=== PATIENT | male | born 1940 | race Caucasian/White ===

== ENCOUNTER 2018-08-31 20:36 | Inpatient (IN) | payer OTHER ==
--- NOTE | 2018-08-31 20:53 | PDOC ---
History of Present Illness - General Chief Complaint: Chest Pain Stated Complaint: CHEST PAIN Time Seen by Provider: 08/31/18 20:52 History Source: Patient Exam Limitations: No Limitations - History of Present Illness Initial Comments: Pt is a 78 yo M, with PMH of glaucoma and cataracts, who is presenting with sharp L-sided chest pain, which he describes as "electric shocks". He says the pain started at 6 pm after he returned home from work, will come and go, and lasts a few seconds. He also states he has had numbness on his L lower face x2 days. Pain is not associated with n/v or extremity parasthesia. The pain came 5- 6 times before he presented to the ER. Pt states his PCP told him he needed a breast mammogram and possible R breast biopsy due to increased breast tissue and swelling. Pt denies any recent fevers/chills, headache, vision changes, SOB , nausea/vomiting, abdominal pain, diarrhea/constipation, or leg swelling. He denies any recent surgeries, travel, or extended bedrest. Pt denies alcohol, cigarette and other drug use. Pt denies recent travel and other sick contacts. 09/01/18 02:21 Past History - Travel Traveled outside of the country in the last 30 days: No Close contact w/someone who was outside of country & ill: No - Past Medical History Allergies/Adverse Reactions: Allergies Allergy/AdvReac Type Severity Reaction Status Date / Time diphenhydramine Allergy Verified 08/31/18 20:46 [From Benadryl] meperidine [From Demerol] Allergy Verified 08/31/18 20:47 Home Medications: Ambulatory Orders Brimonidine Tartrate [Alphagan 0.2% -] 1 drop TID 08/31/18 Brinzolamide [Azopt] 15 ml OP DAILY 08/31/18 Latanoprost 0.005% Eye Drops [Xalatan 0.005% Eye Drops -] 1 drop HS 08/31/18 Montelukast Sodium [Singulair] 4 mg PO DAILY 08/31/18 Netarsudil Mesylate [Rhopressa] 2.5 ml OP DAILY 08/31/18 Omeprazole 20 mg PO DAILY 08/31/18 Asthma: No Cardiac Disorders: No COPD: No DVT: No Hx Glaucoma: Yes Other medical history: GLAUCOMA - Surgical History Cardiac Surgery: No - Suicide/Smoking/Psychosocial Hx Smoking History: Never smoked Review of Systems - Review of Systems Able to Perform ROS?: Yes Is the patient limited Libyan proficient: No Constitutional: Yes: Weight Stable. No: Chills, Diaphoresis, Fever, Loss of Appetite, Night Sweats, Weakness HEENTM: No: Blurred Vision, Recent change in vision, Nose Congestion, Throat Pain, Difficulty Swallowing Respiratory: No: Cough, Orthopnea, Shortness of Breath, Wheezing, Productive cough, Hemoptysis Cardiac (ROS): Yes: Chest Pain. No: Edema, Irregular Heart Rate, Lightheadedness, Palpitations, Syncope, Chest Tightness ABD/GI: No: Abdominal Distended, Constipated, Diarrhea, Difficulty Swallowing, Nausea, Poor Appetite, Poor Fluid Intake, Vomiting, Abdominal cramping : No: Burning, Dysuria, Frequency, Hematuria, Pain, Urgency Musculoskeletal: No: Back Pain, Joint Pain, Muscle Weakness Integumentary: No: Bruising, Erythema, Rash Neurological: No: Headache, Numbness, Seizure, Tremors, Weakness, Unsteady Gait , Ataxia, Dizziness Psychiatric: No: Sleep Pattern Change, Change in Appetite Endocrine: No: Increased Urine, Change in Weight Hematologic/Lymphatic: No: Anemia, Blood Clots, Easy Bleeding, Easy Bruising All Other Systems: Reviewed and Negative *Physical Exam - Vital Signs Last Vital Signs Temp Pulse Resp BP Pulse Ox 97.7 F 72 18 164/93 99 08/31/18 20:43 08/31/18 20:43 08/31/18 20:43 08/31/18 20:43 08/31/18 20:43 - Physical Exam General Appearance: Yes: Nourished, Appropriately Dressed, Moderate Distress ( Pt vitals stable, pt has short bouts of pain (1-2 seconds and holds L chest wall )), Thin (pt face appears gaunt) HEENT: positive: EOMI, LUIS EDUARDO, Normal ENT Inspection, Normal Voice, Symmetrical, Pharynx Normal, Hearing Grossly Normal. negative: Scleral Icterus (R), Scleral Icterus (L), Pharyngeal Erythema, Tonsillar Exudate, Tonsillar Erythema, Rhinorrhea Neck: positive: Trachea midline, Normal Thyroid, Supple. negative: Tender, Rigid, Lymphadenopathy (R), Lymphadenopathy (L), Rigidity Respiratory/Chest: positive: Chest Tender (tenderness to palpation over lateral L chest wall, no obvious erythema or ecchymosis), Lungs Clear, Normal Breath Sounds, Other (increased breast tissue b/l). negative: Respiratory Distress, Accessory Muscle Use, Crackles, Wheezing Cardiovascular: positive: Regular Rhythm, Regular Rate, S1, S2, Other (RBBB). negative: Edema, JVD, Murmur Vascular Pulses: Carotid (R): 4+, Carotid (L): 4+ Gastrointestinal/Abdominal: positive: Normal Bowel Sounds, Flat, Soft. negative : Tender, Organomegaly, Pulsatile Mass, Distended, Guarding, Rebound Rectal Exam: positive: deferred Lymphatic: positive: Adenopathy (mild adenopathy in L axilla, LNs not firm or fixed. tenderness with palpation of L axilla.), Tenderness Musculoskeletal: positive: Normal Inspection. negative: CVA Tenderness Extremity: positive: Normal Capillary Refill, Normal Inspection, Normal Range of Motion, Pelvis Stable. negative: Tender, Pedal Edema Integumentary: positive: Normal Color, Dry, Warm. negative: Jaundice, Clammy, Diaphoresis, Rash Neurologic: positive: assistance representative II-XII NML intact, Fully Oriented, Alert, Normal Mood/ Affect, Normal Response, Motor Strength 5/5. negative: EOM Palsy, Facial Droop Heart Score/ECG Review - History History: Slightly suspicious - Electrocardiogram EKG: Non specific repolarization disturbance (RBBB) - Age Age: >/= 65 - Risk Factors Based on the list above the patient has:: No risk factors known - Troponin Troponin: </= normal limit - Score Heart Score - Total: 3 ED Treatment Course - LABORATORY CBC & Chemistry Diagram: 08/31/18 21:36 08/31/18 21:36 Medical Decision Making - Medical Decision Making Pt was seen at bedside, also will be seen by attending Dr. Morin. Pt presenting with sharp L-sided chest pain, which he describes as "electric shocks ". He says the pain started at 6 pm after he returned home from work, will come and go, and lasts a few seconds. He also states he has had numbness on his L lower face x2 days. Pain is not associated with n/v or extremity parasthesia. The pain came 5-6 times before he presented to the ER. Pt states his PCP told him he needed a breast mammogram and possible R breast biopsy due to increased breast tissue and swelling. Pt denies any recent fevers/chills, headache, vision changes, SOB, nausea/vomiting, abdominal pain, diarrhea/constipation, or leg swelling. Pt denies chickenpox history. PE showed focal chest wall tenderness over L chest and axilla region with palpation. No rash or lesions over chest wall. Pt vitals stable, saturating 99% , but appears gaunt. Considering ACS vs coronary vasospasm vs zoster vs PE. Ordered work-up including CBC, CMP, coags, cardiac profile, ECG, chest x-ray, UA , urine culture. Pt denying pain control at this time. Will continue to reassess pt and monitor for symptomatic improvement. ECG showed NSR, RBBB; HR 65, QRS 128, QTc 443 Spoke with pts son on the phone who is a physician, who is comfortable with the plan. He stated pt had not been diagnosed with RBBB in the past to his knowledge. 08/31/18 21:20 Pt was taken to chest x-ray. 08/31/18 22:18 CBC, CMP, and coags WNL. Trop <.02. Ordered chest CTA. Provided 650 mg PO Tylenol for pain and 1 L NS. Spoke with pts son who is agreeable with plan as well. 08/31/18 22:33 Pt taken for CTA. 08/31/18 23:06 [id number] CT/CHEST CTA Chest CT angiography Clinical information: chest pain; evaluate for pulmonary embolism, masses Multiplanar imaging was performed following the intravenous bolus administration of nonionic contrast. No prior CT studies are available at this facility for direct comparison. No discrete pulmonary embolus is identified. Patchy nodular infiltrates are identified within the right upper lobe, right middle lobe and lingula. Scattered subcentimeter pulmonary nodules are noted within the lower lobes bilaterally. Several nonspecific mildly prominent bilateral hilar lymph nodes are seen which may be on a reactive basis. No pneumothorax or pleural effusion is identified. There is no definite cardiac enlargement. No pericardial effusion is seen. There is no aortic aneurysm. The visualized osseous structures demonstrate no gross acute pathology. Impression: No CT evidence of pulmonary embolism. Patchy bilateral nodular infiltrates are noted as discussed above. There is also visualization of several scattered subcentimeter bilateral lower lobe pulmonary nodules. Correlate with follow-up CT to document resolution of these findings. Nonspecific mildly prominent bilateral hilar lymph nodes are seen which may be reactive in nature. Will page hospitalist team for admission to r/o ACS and further work-up of chest nodules. 09/01/18 00:08 Pt needed reassurance to stay in hospital. Spoke with son again about results, who encouraged pt to stay in the hospital. Paged hospitalist team for admission. 09/01/18 00:41 Pt accepted to hospitalist team, Dr. Garza. Pt lying comfortably, vitals are stable. Awaiting bed upstairs. Pt on telemetry box. 09/01/18 01:17 *DC/Admit/Observation/Transfer Diagnosis at time of Disposition: RBBB, Atypical chest pain, Pulmonary nodules - Discharge Dispostion Condition at time of disposition: Stable Decision to Admit order: Yes - Referrals - Patient Instructions - Post Discharge Activity
--- NOTE | 2018-08-31 21:11 | PDOC ---
Attending Attestation - HPI HPI: 08/31/18 21:44 The patient is a 78 year old male with a significant past medical history of acid reflux, asthma, cataract surgery (last year), glaucoma who presents to the ED with complaints of chest pain. Patient reports intermittent episodes of left sided chest pain that radiates to the mid chest since 6pm tonight. Patient states his pain is a stabbing like sensation. Patient states he lost 12 pounds over the past year. Denies nausea. Denies shortness of breath. Denies abdominal pain. Denies diaphoresis. Denies fever or chills. Denies any other symptoms. - Physicial Exam PE: 08/31/18 21:44 Constitutional: + thin appearing. Awake, alert, oriented. No acute distress. Head: Normocephalic. Atraumatic Eyes: + Droopy eyelid bilaterally, left more than right. PERRL. EOMI. Conjunctivae are not pale. ENT: Mucous membranes are moist and intact. Posterior pharynx without exudates or erythema. Uvula midline. Neck: Supple. Full ROM. No lymphadenopathy. Cardiovascular: Regular rate. Regular rhythm. S1, S2 regular. Distal pulses are 2+ and symmetric. Pulmonary/Chest: No evidence of respiratory distress. Clear to auscultation bilaterally No wheezing, rales or rhonchi. Abdominal: Soft and non-distended. There is no tenderness. No rebound, guarding or rigidity. No organomegaly. No palpable masses. Good bowel sounds. Back: No CVA tenderness. Musculoskeletal: No edema. No cyanosis. No clubbing. Full range of motion in all extremities. Nocalf tenderness. Radial/pedal pulses are intact and 2+ bilaterally Skin: Skin is warm and dry. No petechiae. No purpura. Neurological: Alert and oriented to person, place, and time. Cranial nerves II -XII are grossly intact. Normal speech. Strength is grossly symmetric. No sensory deficits. Psychiatric: Good eye contact. Normal interaction, affect and behavior. <Yusuf Arredondo - Last Filed: 08/31/18 21:44> - Resident Resident Name: Deonna Delatorre - ED Attending Attestation I have performed the following: I have examined & evaluated the patient, The case was reviewed & discussed with the resident, I agree w/resident's findings & plan, Exceptions are as noted - Medical Decision Making 11/01/18 21:11 I, Dr. Kelsey Morin DO, attest that this document has been prepared under my direction and personally reviewed by me in its entirety. I further attest, that it accurately reflects all work, treatment, procedures and medical decision -making performed by me. 08/31/18 22:34 a/p: 78yo male with intermittent episodes of L lateral cp that radiates to his mid sternal region -unable to reproduce with palpation -no prior episodes -feels different from his GERD -pt states wt loss about 15 lbs -no night sweats or cough -will send labs, ekg, cxr -will give tylenol for pain and asa -will monitor and reassess 08/31/18 22:38 cxr clear trop negative will obtain cta chest given pleuritic component of pain now and RBBB on ekg 09/01/18 00:37 no PE on cta pulmonary nodules on ct hilar adenopathy will place in obs for pulm eval and cards eval of cp 09/01/18 01:16 resident discussed the case with bandar who accepts pt to service <Kelsey Morin - Last Filed: 09/01/18 01:16> Heart Score/ECG Review - ECG Intrepretation Comment:: 08/31/18 21:12 sinus at 65, nl axis, rbbb, no acute st/t wave findings <Kelsey Morin - Last Filed: 09/01/18 01:16> Attestations - Attestations 08/31/18 21:44 Documentation prepared by Yusuf Arredondo, acting as medical records auditor for Kelsey Morin DO <Yusuf Arredondo - Last Filed: 08/31/18 21:44>
[2018-08-31] MEDS ORDERED: ASPIRIN 81 MG CHEWABLE TABLETS PO ONE (21:13)
[2018-08-31] MEDS ORDERED: ASPIRIN COATED 81 MG TABLET.EC ONE (21:50)
[2018-08-31 21:51] LABS: BASO % 0.4 % (0-2.0); EOS % 9.6 % (0-4.5); HEMATOCRIT 41.4 % (35.4-49); LYMPH % 19.6 % (8-40); MCHC 33.8 g/dl (32.0-35.9); MEAN PLT VOLUME 7.5 fl (7.5-11.1); MONO % 11.9 % (3.8-10.2); NEUT % 58.5 % (42.8-82.8); PLATELET COUNT 162 K/MM3 (134-434); RDW 12.9 % (11.9-15.9); WHITE BLOOD COUNT 4.2 K/mm3 (4.0-10.0)
[2018-08-31 22:04] LABS: INR 0.96 (0.83-1.09); PROTHROMBIN TIME (PATIENT) 11.3 SEC (9.7-13.0)
[2018-08-31 22:06] LABS: ACTIVATED PTT 27.5 SECONDS (25.2-36.5)
[2018-08-31 22:18] LABS: ALBUMIN 3.4 g/dl (3.4-5.0); ALK PHOS 76 U/L (45-117); ANION GAP 8 MMOL/L (8-16); BILIRUBIN,TOTAL 0.4 mg/dL (0.2-1); BLOOD UREA NITROGEN 16 mg/dL (7-18); CALCIUM 8.4 mg/dL (8.5-10.1); CHLORIDE 106 mmol/L (98-107); CO2 27 mmol/L (21-32); CREATININE 0.7 mg/dL (0.55-1.3); GLUCOSE,RANDOM 89 mg/dL (74-106); MAGNESIUM 1.9 mg/dL (1.8-2.4); POTASSIUM 3.7 mmol/L (3.5-5.1); SGOT/AST 17 U/L (15-37); SGPT/ALT 20 U/L (13-61); SODIUM 141 mmol/L (136-145); TOT PROT 7.3 g/dl (6.4-8.2)
[2018-08-31] MEDS ORDERED: ACETAMINOPHEN 325 MG TABLET (FP) PO ONE (22:33)
[2018-08-31] MEDS ORDERED: SODIUM CHLORIDE 1,000 ML IV STA (22:34)
[2018-08-31] MEDS ORDERED: ACETAMINOPHEN 325 MG TABLET (FP) ONE (22:46)
[2018-08-31 23:12] LABS: URINE APPEARANCE CLEAR; URINE BILIRUBIN NEGATIVE (<2.0 mg/dL); URINE COLOR YELLOW; URINE GLUCOSE (UA) NEGATIVE (NEGATIVE); URINE KETONE NEGATIVE (NEGATIVE); URINE LEUK ESTERASE NEGATIVE (NEGATIVE); URINE NITRITE NEGATIVE (NEGATIVE); URINE PROTEIN NEGATIVE (NEGATIVE); URINE UROBILINOGEN 4.0 E.U/dl mg/dL (0.2-1.0)
--- NOTE | 2018-09-01 03:09 | HP ---
CHIEF COMPLAINT: left sided chest pain PCP: Dr. Rome Beckford HISTORY OF PRESENT ILLNESS: Patient is a 78 year old male with history of of asthma, glaucoma, cataracts (s/ p recent surgery), GERD, presents with complaint of left- sided chest pain. States the pain began at approx. 6pm this evening as he was sitting down and watching TV. The pain is lovalized to lateral border of left chest, and non radiating. Described as sharp "electrical shock" with sudden onset, lasting 1-3 seconds, before immediately fading. Described as intermittent, with no clear inciting factor. Patient denies any prior occurrence of these symptoms. Denies palliative features of this pain. Patient denies history of WI or stroke. He does not recall if he had prior cardiac echo, and denies prior stress test of cardiac catheterization. Currently denies headache, dizziness, lightheadedness, fall, loss of consciousness, palpitations, abdominal pain, nausea, vomiting, diarrhea, constipation. However, he does admit recent unintentional weight loss of about 10-15 pounds. Denies night sweats, chills. 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 Lives: with his . Family History: Father: at 92 y/o. Required pacemaker Mother: at 84 y/o. WI at approx 80 y/o. Allergies: Shrimp, lobster. diphenhydramine [From Benadryl] Allergy (Verified 08/31/18 20:46) meperidine [From Demerol] Allergy (Verified 08/31/18 20:47) HOME MEDICATIONS: Home Medications Medication Instructions Recorded Brimonidine Tartrate [Alphagan 1 drop TID 08/31/18 0.2% -] Brinzolamide [Azopt] 15 ml OP DAILY 08/31/18 Latanoprost 0.005% Eye Drops 1 drop HS 08/31/18 [Xalatan 0.005% Eye Drops -] Montelukast Sodium [Singulair] 4 mg PO DAILY 08/31/18 Netarsudil Mesylate [Rhopressa] 2.5 ml OP DAILY 08/31/18 Omeprazole 20 mg PO DAILY 08/31/18 REVIEW OF SYSTEMS CONSTITUTIONAL: Admits: unintentional weight change. Absent: fever, chills, diaphoresis, generalized weakness, malaise, loss of appetite. HEENT: Absent: rhinorrhea, nasal congestion, throat pain, throat swelling, difficulty swallowing, mouth swelling, ear pain, eye pain, visual changes CARDIOVASCULAR: Admits: chest pain. Absent: syncope, palpitations, irregular heart rate, lightheadedness, peripheral edema RESPIRATORY: Absent: cough, shortness of breath, dyspnea with exertion, orthopnea, wheezing, stridor, hemoptysis GASTROINTESTINAL: Absent: abdominal pain, abdominal distension, nausea, vomiting, diarrhea, constipation, melena, hematochezia GENITOURINARY: Absent: dysuria, frequency, urgency, hesitancy, hematuria, flank pain, genital pain MUSCULOSKELETAL: Absent: myalgia, arthralgia, joint swelling, back pain, neck pain SKIN: Absent: rash, itching, pallor HEMATOLOGIC/IMMUNOLOGIC: Absent: easy bleeding, easy bruising, lymphadenopathy, frequent infections ENDOCRINE: Admits: unexplained weight loss. Absent: unexplained weight gain, heat intolerance, cold intolerance NEUROLOGIC: Absent: headache, focal weakness or paresthesias, dizziness, unsteady gait, seizure, mental status changes, bladder or bowel incontinence PSYCHIATRIC: Absent: anxiety, depression, suicidal or homicidal ideation, hallucinations. PHYSICAL EXAMINATION Vital Signs - 24 hr 08/31/18 20:43 Temperature 97.7 F Pulse Rate 72 Respiratory 18 Rate Blood Pressure 164/93 O2 Sat by Pulse 99 Oximetry (%) GENERAL: Awake, alert, and fully oriented, in no acute distress. HEAD: Normal with no signs of trauma. EYES: Pupils equal, round and reactive to light, extraocular movements intact b/ l without nystagmus. Sclera anicteric, conjunctiva clear without injection. Left eyelid droop noted greater than right (patient states this is not new finding). EARS, NOSE, THROAT: Ears normal, nares patent, oropharynx clear without exudates. Moist mucous membranes. NECK: Normal range of motion, supple without lymphadenopathy, JVD, or masses. LUNGS: Breath sounds equal, clear to auscultation bilaterally. No wheezes, and no crackles. No accessory muscle use. HEART: Regular rate and rhythm, normal S1 and S2 without murmur, rub or gallop. CHEST: Pain was reproducible once during my exam. B/L axillary lymphadenopathy noted greater on right than left. ABDOMEN: Soft, nontender, not distended, normoactive bowel sounds, no guarding, no rebound, no masses. No hepatomegaly or splenomegaly. MUSCULOSKELETAL: Normal range of motion at all joints. No bony deformities or tenderness. No CVA tenderness. UPPER EXTREMITIES: 2+ radial pulses b/l. Warm, well-perfused. LOWER EXTREMITIES: 2+ dorsalis pedis pulses b/l. Warm, well-perfused. No calf tenderness. No peripheral edema b/l. NEUROLOGICAL: Cranial nerves II-XII intact. Normal speech. Strength 5/5 b/l upper and lower extremities. PSYCHIATRIC: Cooperative. Good eye contact. Appropriate mood and affect upon my encounter. SKIN: Warm, dry. Laboratory Results - last 24 hr 08/31/18 08/31/18 08/31/18 21:36 21:36 21:36 WBC 4.2 RBC 4.50 Hgb 14.0 Hct 41.4 MCV 92.0 MCH 31.0 MCHC 33.8 RDW 12.9 Plt Count 162 MPV 7.5 Absolute Neuts (auto) 2.4 Neutrophils % 58.5 Lymphocytes % 19.6 Monocytes % 11.9 H Eosinophils % 9.6 H Basophils % 0.4 Nucleated RBC % 0 PT with INR 11.30 INR 0.96 PTT (Actin FS) 27.5 Sodium 141 Potassium 3.7 Chloride 106 Carbon Dioxide 27 Anion Gap 8 BUN 16 Creatinine 0.7 Creat Clearance w eGFR > 60 Random Glucose 89 Calcium 8.4 L Magnesium 1.9 Total Bilirubin 0.4 AST 17 ALT 20 Alkaline Phosphatase 76 Creatine Kinase 73 Troponin I < 0.02 Total Protein 7.3 Albumin 3.4 Urine Color Urine Appearance Urine pH Ur Specific Crosby Urine Protein Urine Glucose (UA) Urine Ketones Urine Blood Urine Nitrite Urine Bilirubin Urine Urobilinogen Ur Leukocyte Esterase 08/31/18 22:45 WBC RBC Hgb Hct MCV MCH MCHC RDW Plt Count MPV Absolute Neuts (auto) Neutrophils % Lymphocytes % Monocytes % Eosinophils % Basophils % Nucleated RBC % PT with INR INR PTT (Actin FS) Sodium Potassium Chloride Carbon Dioxide Anion Gap BUN Creatinine Creat Clearance w eGFR Random Glucose Calcium Magnesium Total Bilirubin AST ALT Alkaline Phosphatase Creatine Kinase Troponin I Total Protein Albumin Urine Color Yellow Urine Appearance Clear Urine pH 5.0 Ur Specific Crosby 1.021 Urine Protein Negative Urine Glucose (UA) Negative Urine Ketones Negative Urine Blood Negative Urine Nitrite Negative Urine Bilirubin Negative Urine Urobilinogen 4.0 e.u/dl Ur Leukocyte Esterase Negative ASSESSMENT/PLAN: Patient is a 78 year old male with history of of asthma, glaucoma, cataracts (s/ p recent surgery), GERD, presents with complaint of left- sided chest pain. Atypical chest pain -Concern for unstable angina vs. musculoskeletal etiology as pain is partially reproducible -Troponins negative X2 -EKG shows sinus rhythm 65bpm with RBBB -F/U cardiology consult (Dr. Valero) -F/U cardiac echo -Cardiac monitoring -NPO in anticipation for stress test -Typenol 650mg PO Q6H for pain PRN Pulmonary infiltrates -Patient endorses recent unintentional weight loss, and palpable 1cm lymphadenopathy noted at right axilla upon exam. Concern for malignancy. -CT chest shows patchy nodular infiltrates in RUL, and RML, scattered subcentimeter pulmonary nodules b/l lower lobes, with hilar adenopathy b/l. -F/U pulmonology consult (Dr. Monterroso) -Levaquin 750mg daily -Sputum culture -F/U ESR, CRP Glaucoma -Continue home medications GERD -Continue omeprazole 20mg PO daily FEN -IV normal saline at 75mL/ hour -Follow CMP -NPO in anticipation for possible stress test Prophylaxis -Lovenox 40mg subq TID Disposition -Admit to telemetry floor for care Visit type - Emergency Visit Emergency Visit: Yes ED Registration Date: 09/01/18 Care time: The patient presented to the Emergency Department on the above date and was hospitalized for further evaluation of their emergent condition. - New Patient This patient is new to me today: Yes Date on this admission: 09/01/18 - Critical Care Critical Care patient: No
[2018-09-01] MEDS ORDERED: ACETAMINOPHEN 325 MG TABLET (FP) PO PRN (05:09)
--- NOTE | 2018-09-01 06:55 | PN ---
Teaching Attending Note Name of Resident: Kiah Zayas ATTENDING PHYSICIAN STATEMENT I saw and evaluated the patient. I reviewed the resident's note and discussed the case with the resident. I agree with the resident's findings and plan as documented. SUBJECTIVE: Seen and examined with resident; please refer to their note for further information on the history. He is a 78 y/o HM with a PMH significant for glaucoma s/p procedure who does not take any chronic medications; he denies HTN but he is 160 upon presentation but postulates it was because he just got to the hospital. He presents with intermittent chest pain. During the evening on the day of presentation he experienced sharp, shooting, 'electric' chest pain to the L-lateral chest that was intense for seconds then resolved. Occured several times since then. Is self limiting and it resolves on its own. Happened once for <3 seconds in the ER. No other sx. No SOB, etc. EKG negative for STEMI, troponin negative. CTA negative for PE but incidentally scattred pulm nodules and patchy nodular infiltrate. Has never seen a pulmonary MD. Sometimes will cough but no recent illness. Admit to the medicine service to R/O ACS. Questionable L-sided axilary LN palpated. Of note is that he doesn't see a Slackline Operator or had any significant cardiac workup before. 10 sys ROS done and negative aside from HPI PMH and PSH per chart FH asked and noncontributory Denies tobacco or alcohol abuse currently OBJECTIVE: VSS; labs and imaging reviewed NAD, resting in bed Potential LN vs. anatomical difference palpated in L-axilla Lungs CTAB with sym expansion RRR with s1/2 no mgr NT ND +BS No edema, normal muscle tone CTA discussed in HPI Troponin (-) x2 EKG reviewed ASSESSMENT AND PLAN: Mr. Grijalva is a 78 y/o HM with a PMH significant for glaucoma presenting with somewhat atypical chest pain. He is at least moderate risk and would benefit from stress test. He was found to have patchy nodular infiltrates and nodules on CT, as well. 1) Chest pain in adult, r/o ACS -Moderate risk; checking troponin and monitoring telemetry -Check stress test; if positive consult cardiology and switch to inpatient -Start ASA 81mg PO QD for primary prevention -Check lipids, A1c, TSH -If negative stress consider noncardiac causes of chest pain in adult. 2) Patchy nodular infiltrates, pulm nodules -New finding, no sx. No fevers or white count -Checking sputum culture, starting PO levaquin for empiric CAP coverage, consulting pulmonary for further assessment -?L-axillary LN? May have been normal tissue. 3) Glaucoma -Continue home meds Full Code
[2018-09-01] MEDS ORDERED: ACETAMINOPHEN 325 MG TABLET (FP) ONE (08:56)
[2018-09-01] MEDS ORDERED: PANTOPRAZOLE 20 MG TABLET (FP) PO SCH (10:00)
[2018-09-01] MEDS ORDERED: PATIENT'S OWN MEDICATION (NON-FORMULARY) (Netarsudil Mesylate [Rhopressa] 2.5 ML) OU SCH (10:00)
[2018-09-01] MEDS ORDERED: PATIENT'S OWN MEDICATION (NON-FORMULARY) (Montelukast Sodium [Singulair] 4 MG) PO SCH (10:00)
[2018-09-01] MEDS ORDERED: levoFLOXacin 750 MG TABLET PO SCH (10:00)
--- NOTE | 2018-09-01 10:44 | EKG ---
Test Reason : Blood Pressure : / mmHG Vent. Rate : 051 BPM Atrial Rate : 051 BPM P-R Int : 134 ms QRS Dur : 134 ms QT Int : 452 ms P-R-T Axes : 085 001 056 degrees QTc Int : 416 ms SINUS BRADYCARDIA RIGHT BUNDLE BRANCH BLOCK ABNORMAL ECG NO PREVIOUS ECGS AVAILABLE Confirmed by LUCA SADLER MD ([id number]) on 09/01/2018 10:44:09 AM Referred By: Confirmed By:LUCA SADLER MD
--- NOTE | 2018-09-01 11:08 | ECHO ---
Name: TRUONG JONES Exam:Adult Echocardiogram Study Date: 09/01/2018 09:56 AM Age: 78 yrs Reason For Study: Chest pain Height: 66 in Weight: 118 lb BSA: 1.6 m2 MMode/2D Measurements & Calculations IVSd: 0.61 cm LA dimension: 3.0 cm LVIDd: 4.8 cm LVIDs: 3.0 cm LVPWd: 0.79 cm LVPWs: 0.99 cm EDV(Teich): 105.1 ml ESV(Teich): 33.6 ml Doppler Measurements & Calculations MV E max cici: 63.9 cm/sec Ao V2 max: 102.3 cm/sec MV A max cici: 55.3 cm/sec Ao max P.2 mmHg MV E/A: 1.2 AI P1/2t: 686.3 msec MV dec time: 0.14 sec AI max cici: 244.3 cm/sec LV V1 max P.0 mmHg AI max P.9 mmHg LV V1 max: 85.9 cm/sec AI dec slope: 104.3 cm/sec2 PA V2 max: 88.2 cm/sec PA max P.1 mmHg Procedure The study was technically difficult with many images being suboptimal in quality. Left Ventricle Left ventricular systolic function is grossly normal. Regional wall motion abnormalities cannot be ex cluded due to limited visualization. Right Ventricle The right ventricle is borderline dilated. The right ventricular systolic function is grossly normal. Atria Normal left and right atrial size and function. Mitral Valve The mitral valve is grossly normal. There is no mitral valve stenosis. There is trace mitral regurgit ation. Tricuspid Valve The tricuspid valve is not well visualized, but is grossly normal. There is trace tricuspid regurgita tion. Aortic Valve The aortic valve is not well visualized. No hemodynamically significant valvular aortic stenosis. Mil d aortic regurgitation. Pulmonic Valve The pulmonic valve is not well seen, but is grossly normal. There is no pulmonic valvular stenosis. T here is no pulmonic valvular regurgitation. Great Vessels The aortic root is normal size. Pericardium/Pleura There is no pericardial effusion. Interpretation Summary The study was technically difficult with many images being suboptimal in quality. Regional wall motion abnormalities cannot be excluded due to limited visualization. Left ventricular systolic function is grossly normal. The right ventricle is borderline dilated. Mild aortic regurgitation. There is no pericardial effusion. MD Crowder *Berta 09/01/2018 11:08 AM
[2018-09-01] MEDS: ASPIRIN 81 MG CHEWABLE TABLETS PO SCH (11:09)
[2018-09-01] MEDS: ENOXAPARIN NA (PORCINE) 40 MG/0.4 ML DISP.SYRIN SQ SCH (11:10)
--- NOTE | 2018-09-01 11:51 | CON.CARD ---
Cardiology Consult (text) - Consultation Consultation Note: cc: cp hpi: 78 m no sig pmhx here with cp. Yesterday was sitting at work and noticed sharp electrical type pain in left axilla/chest area. Only last a brief moment. Had a few more episodes since then. Pt admits he has had this cp intermittently for several mos. No anginal sxs. No sob palps dizzy loc pnd orthopnea le edema. No hx hrt dz. pmh: per hpi psh: nc social: no tob fam: no premature cad, scd ros: per hpi; no nvd fever cough resendez vision changes, gib hematuria dysuria meds: Ambulatory Orders Brimonidine Tartrate [Alphagan 0.2% -] 1 drop TID 08/31/18 Brinzolamide [Azopt] 15 ml OP DAILY 08/31/18 Latanoprost 0.005% Eye Drops [Xalatan 0.005% Eye Drops -] 1 drop HS 08/31/18 Montelukast Sodium [Singulair] 4 mg PO DAILY 08/31/18 Netarsudil Mesylate [Rhopressa] 2.5 ml OP DAILY 08/31/18 Omeprazole 20 mg PO DAILY 08/31/18 pe: Vital Signs Period Temp Pulse Resp BP Sys/Nguyen Pulse Ox Last 24 Hr 97.4 F-98.0 F 54-72 16-20 96-164/50-93 97-99 nad no jvd rrr s1 s2 no mrg cta bl nl eff aaox3 no le e/c/c abd nt nd pos bs no jaundice diaphoresis pos dp pt no carotid bruits Laboratory Last Values WBC 4.2 K/mm3 (4.0-10.0) 08/31/18 21:36 RBC 4.50 M/mm3 (4.00-5.60) 08/31/18 21:36 Hgb 14.0 GM/dL (11.7-16.9) 08/31/18 21:36 Hct 41.4 % (35.4-49) 08/31/18 21:36 MCV 92.0 fl (80-96) 08/31/18 21:36 MCH 31.0 pg (25.7-33.7) 08/31/18 21:36 MCHC 33.8 g/dl (32.0-35.9) 08/31/18 21:36 RDW 12.9 % (11.9-15.9) 08/31/18 21:36 Plt Count 162 K/MM3 (134-434) 08/31/18 21:36 MPV 7.5 fl (7.5-11.1) 08/31/18 21:36 Absolute Neuts (auto) 2.4 K/mm3 (1.5-8.0) 08/31/18 21:36 Neutrophils % 58.5 % (42.8-82.8) 08/31/18 21:36 Lymphocytes % 19.6 % (8-40) 08/31/18 21:36 Monocytes % 11.9 % (3.8-10.2) H 08/31/18 21:36 Eosinophils % 9.6 % (0-4.5) H 08/31/18 21:36 Basophils % 0.4 % (0-2.0) 08/31/18 21:36 Nucleated RBC % 0 % (0-0) 08/31/18 21:36 PT with INR 11.30 SEC (9.7-13.0) 08/31/18 21:36 INR 0.96 (0.83-1.09) 08/31/18 21:36 PTT (Actin FS) 27.5 SECONDS (25.2-36.5) 08/31/18 21:36 Sodium 141 mmol/L (136-145) 08/31/18 21:36 Potassium 3.7 mmol/L (3.5-5.1) 08/31/18 21:36 Chloride 106 mmol/L (98-107) 08/31/18 21:36 Carbon Dioxide 27 mmol/L (21-32) 08/31/18 21:36 Anion Gap 8 MMOL/L (8-16) 08/31/18 21:36 BUN 16 mg/dL (7-18) 08/31/18 21:36 Creatinine 0.7 mg/dL (0.55-1.3) 08/31/18 21:36 Creat Clearance w eGFR > 60 (>60) 08/31/18 21:36 Random Glucose 89 mg/dL (74-106) 08/31/18 21:36 Hemoglobin A1c % 5.0 % (4.2-6.3) 09/01/18 09:30 Calcium 8.4 mg/dL (8.5-10.1) L 08/31/18 21:36 Magnesium 1.9 mg/dL (1.8-2.4) 08/31/18 21:36 Total Bilirubin 0.4 mg/dL (0.2-1) 08/31/18 21:36 AST 17 U/L (15-37) 08/31/18 21:36 ALT 20 U/L (13-61) 08/31/18 21:36 Alkaline Phosphatase 76 U/L (45-117) 08/31/18 21:36 Creatine Kinase 73 IU/L (26-308) 08/31/18 21:36 Troponin I < 0.02 ng/ml (0.00-0.05) 09/01/18 02:08 C-Reactive Protein < 0.3 MG/DL (0.00-0.3) 09/01/18 09:30 Total Protein 7.3 g/dl (6.4-8.2) 08/31/18 21:36 Albumin 3.4 g/dl (3.4-5.0) 08/31/18 21:36 Triglycerides 37 mg/dL (0-150) 09/01/18 09:30 Cholesterol 156 mg/dL (50-200) 09/01/18 09:30 Total LDL Cholesterol 79 mg/dL (5-100) 09/01/18 09:30 HDL Cholesterol 75 mg/dL (40-60) H 09/01/18 09:30 TSH 1.70 uIU/ml (0.358-3.74) 09/01/18 09:30 Urine Color Yellow 08/31/18 22:45 Urine Appearance Clear 08/31/18 22:45 Urine pH 5.0 (5.0-8.0) 08/31/18 22:45 Ur Specific [place] 1.021 (1.010-1.035) 08/31/18 22:45 Urine Protein Negative (NEGATIVE) 08/31/18 22:45 Urine Glucose (UA) Negative (NEGATIVE) 08/31/18 22:45 Urine Ketones Negative (NEGATIVE) 08/31/18 22:45 Urine Blood Negative (NEGATIVE) 08/31/18 22:45 Urine Nitrite Negative (NEGATIVE) 08/31/18 22:45 Urine Bilirubin Negative (<2.0 mg/dL) 08/31/18 22:45 Urine Urobilinogen 4.0 e.u/dl mg/dL (0.2-1.0) 08/31/18 22:45 Ur Leukocyte Esterase Negative (NEGATIVE) 08/31/18 22:45 ecg: sr 54, nl pr, rbbb cta chest: no pe, no chf, b/l nodular infiltrates, and hilar LN echo 08/2018: nl lv/rv, mild ar a/p: 78 m no sig pmhx here with cp. cp: -trops neg, cp atypical, echo unremarkable, no signs acs -during exam pt had episode of this cp and he twitched when he felt it shooting in his left axilla/chest, this is not typical for cardiac pain, seems more MSK/ nerve related. Pt has multiple pulmonary findings on ct, rec pulm eval. abnl ecg: -ecg with rbbb, no olds to compare -no signs acs -echo unremarkable -outpt f/u ar: -mild ar on echo here, outpt f/u
--- NOTE | 2018-09-01 16:01 | PN ---
Teaching Attending Note Name of Resident: Nestor Nix ATTENDING PHYSICIAN STATEMENT I saw and evaluated the patient. I reviewed the resident's note and discussed the case with the resident. I agree with the resident's findings and plan as documented. SUBJECTIVE: No fever or chills. No abd pain. L chest intermittent sharp pain at L anterior axillary line x 2 days . happened 1 week ago and few months back . denies smoking. no weight loss . no fever. no cough or sputum production. was treated for PNA 6 weeks ago as out pt OBJECTIVE: NAD. awake , alert. twisted with pain during the exam x 2 seconds. CV: RRR. no MRG Lungs: CTAB Ext: no edema or erythema. Breasts: no masses or discharge in both breasts. no LAP in axilla, soft tissue thickness in L axilla, mobile under skin and on deep tissue Abd: soft, NT, Nd , NL BS MS; TTP over L sided rib ( approximately 8 or 9 ) , at anterior axillary line ASSESSMENT AND PLAN: 78 y/o man with h/o asthma who presented with L sided CP, and was found to have b/l lung nodules and infiltrates . 1- CP: atypical for cardiac origin. EKG with RBBB with no ST or TW changes. Echo reviewed. case d/w Dr. Leal, no indication for stress test. rib xray due to focal tenderness over rib 8 or 9 2- Pulmonary changes and nodules. was diagnosed and treated for PNA 6 weeks ago. - No clinical evidence of PNA now. dc Abx . - changes might be due to previous pNA , or has chronic undiagnosed process. - pulmnary c/s pending - Quantiferon gold ordered last night - might need further testing and f/u as out pt , but I don't think it is responsible for sx - No Lymphadenopathy in L axilla, but thickened soft tissue structure , need t be followed as out pt . family and patient were instructed. PCP to be called by resident 3- dispo : pending Pulm roderick
--- NOTE | 2018-09-01 17:26 | CON.PULM ---
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 Denies fever,chills,sob at rest does have some garza one -two flights.. He says the pain started at 6 pm after he returned home from work, will come and go, and lasts a few seconds. He also states he has had numbness on his L lower face x2 days. Pain is not associated with n/v or extremity parasthesia. The pain came 5-6 times before he presented to the ER. Pt states his PCP told him he needed a breast mammogram and possible R breast biopsy due to increased breast tissue and swelling. Pt denies any recent fevers/chills, headache, vision changes, SOB, nausea/vomiting, abdominal pain, diarrhea/ constipation, or leg swelling. He denies any recent surgeries, travel, or extended bedrest. 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 No: COPD, O2 Dependent Gastrointestinal: No: Ascites Hepatobiliary: No: Cirrhosis Renal/: No: Renal Failure Heme/Onc: No: Anemia Psych: No: Addictions Musculoskeletal: No: Bursitis Rheumatology: No: Lupus ENT: No: Allergic Rhinitis Endocrine: No: Diabetes Mellitus - Past Surgical History Past Surgical History: Yes: Cataract Removal - Alcohol/Substance Use Hx Alcohol Use: Yes (one glass wine) History of Substance Use: reports: None - Smoking History Smoking history: Never smoked Have you smoked in the past 12 months: No - Social History Usual Living Arrangement: With Spouse ADL: Independent Place of : Other History of Recent Travel: No Home Medications - Allergies Allergies/Adverse Reactions: Allergies Allergy/AdvReac Type Severity Reaction Status Date / Time diphenhydramine Allergy Verified 08/31/18 20:46 [From Benadryl] meperidine [From Demerol] Allergy Verified 08/31/18 20:47 - Home Medications Home Medications: Ambulatory Orders Brimonidine Tartrate [Alphagan 0.2% -] 1 drop TID 08/31/18 Brinzolamide [Azopt] 15 ml OU DAILY 08/31/18 Latanoprost 0.005% Eye Drops [Xalatan 0.005% Eye Drops -] 1 drop OU HS 08/31/18 Montelukast Sodium [Singulair] 4 mg PO DAILY 08/31/18 Netarsudil Mesylate [Rhopressa] 2.5 ml OU DAILY 08/31/18 Omeprazole 20 mg PO DAILY 08/31/18 Montelukast Na [Singulair -] 10 mg PO DAILY 09/01/18 Omeprazole 40 mg PO DAILY 09/01/18 Family Disease History - Family Disease History Family History: Unremarkable Review of Systems - Review of Systems Constitutional: denies: Fever Eyes: reports: Other (glaucoma) HENT: reports: No Symptoms Neck: reports: No Symptoms Cardiovascular: reports: Chest Pain Respiratory: reports: Exercise Intolerance, SOB on Exertion. denies: Cough, Hemoptysis, Orthopnea, SOB, Wheezing Gastrointestinal: reports: Abdominal Pain (mid epigastric) Genitourinary: reports: No Symptoms Breasts: reports: Other (enlarging right aereola) Musculoskeletal: reports: No Symptoms Integumentary: reports: No Symptoms Neurological: reports: No Symptoms Physical Exam Vital Sings: Vital Signs Temperature 97.7 F 09/01/18 10:00 Pulse Rate 54 L 09/01/18 10:00 Respiratory Rate 18 09/01/18 10:00 Blood Pressure 127/66 09/01/18 10:00 O2 Sat by Pulse Oximetry (%) 97 09/01/18 06:39 Constitutional: Yes: Calm Eyes: Yes: EOM Intact HENT: Yes: Normocephalic Neck: Yes: Trachea Midline Cardiovascular: Yes: Regular Rate and Rhythm Respiratory: Yes: CTA Bilaterally Gastrointestinal: Yes: Soft Renal/: Yes: WNL Breast(s): Yes: Right (breast larger than left/no mass palpated) Musculoskeletal: Yes: WNL Extremities: Yes: WNL Edema: No Integumentary: Yes: WNL Neurological: Yes: WNL ...Motor Strength: WNL Psychiatric: Yes: WNL Labs: CBC, BMP 08/31/18 21:36 08/31/18 21:36 Imaging - Results Chest X-ray: Report Reviewed, Image Reviewed Cat Scan: Report Reviewed, Image Reviewed Problem List - Problems (1) Atypical chest pain Code(s): R07.89 - OTHER CHEST PAIN (2) Pulmonary nodules Code(s): R91.8 - OTHER NONSPECIFIC ABNORMAL FINDING OF LUNG FIELD (3) RBBB Code(s): I45.10 - UNSPECIFIED RIGHT BUNDLE-BRANCH BLOCK Assessment/Plan infectious vs inflammatory bilateral nodular infiltrates h/o bronchial asthma low index of suspicion for ABPA/?RADHA sharp atypical left axillary pain etiology? 15 lbs weight loss over 6 months would order ESR/CRP sputum for culture/gram stain/fungal culture quant gold/ppd obtain ct abd/pelvis consider ID eval may ultimately need outpatient bronchoscopy will follow Tammy HENDRICKS MD
--- NOTE | 2018-09-01 19:07 | PN ---
Physical Exam: SUBJECTIVE: Patient seen and examined. Pt. endorses electrical jolts every 2-3 minutes from anterior left axilla to mid-sternum. Pt. denies ever having colonoscopy. Pt. endorses decrease in appetite, and unintentional weight-loss over the past few months, endorses 6 pounds loss over the last month. Pt. 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 He endorses post-nasal drip and that causes him to spit frequently. He states he has allergies to shellfish, lobster and shrimp with a questionable allergy to iodine. OBJECTIVE: Vital Signs Period Temp Pulse Resp BP Sys/Nguyen Pulse Ox Last 24 Hr 97.4 F-98.0 F 54-72 16-20 96-164/50-93 97-99 GENERAL: The patient is awake, alert, and fully oriented, in no acute distress except for intermittent jolts as mentioned above. HEAD: Normal with no signs of trauma. EYES: PERRL, extraocular movements intact, sclera anicteric, conjunctiva clear. No ptosis. Pt. endorses narrowed visual [place] and inferior half of visual field. ENT: Ears normal, nares patent, oropharynx clear without exudates, moist mucous membranes. Pt endorses left jaw tenderness/numbness when turning head to right. NECK: Trachea midline, full range of motion, supple, no carotid bruit. LUNGS: Breath sounds equal, clear to auscultation bilaterally, no wheezes, no crackles, no accessory muscle use. No CVA tenderness. HEART: Regular rate and rhythm, S1, S2 without murmur, No JVD. Chest pain not reproducible to palpation. ABDOMEN: Soft, nontender, nondistended, normoactive bowel sounds, no guarding, no rebound, dull to percussion. EXTREMITIES: 2+ dorsal pedal pulses, warm, well-perfused, no edema, ROM intact, 5/5 muscle strength in all limbs. NEUROLOGICAL: Cranial nerves II through XII grossly intact. Normal speech, gait not observed. PSYCH: Normal mood, normal affect. SKIN: Warm, dry, normal turgor, no rashes or lesions noted Laboratory Results - last 24 hr 08/31/18 08/31/18 08/31/18 21:36 21:36 21:36 WBC 4.2 RBC 4.50 Hgb 14.0 Hct 41.4 MCV 92.0 MCH 31.0 MCHC 33.8 RDW 12.9 Plt Count 162 MPV 7.5 Absolute Neuts (auto) 2.4 Neutrophils % 58.5 Lymphocytes % 19.6 Monocytes % 11.9 H Eosinophils % 9.6 H Basophils % 0.4 Nucleated RBC % 0 ESR PT with INR 11.30 INR 0.96 PTT (Actin FS) 27.5 Sodium 141 Potassium 3.7 Chloride 106 Carbon Dioxide 27 Anion Gap 8 BUN 16 Creatinine 0.7 Creat Clearance w eGFR > 60 Random Glucose 89 Hemoglobin A1c % Calcium 8.4 L Magnesium 1.9 Total Bilirubin 0.4 AST 17 ALT 20 Alkaline Phosphatase 76 Creatine Kinase 73 Troponin I < 0.02 C-Reactive Protein Total Protein 7.3 Albumin 3.4 Triglycerides Cholesterol Total LDL Cholesterol HDL Cholesterol TSH Urine Color Urine Appearance Urine pH Ur Specific [place] Urine Protein Urine Glucose (UA) Urine Ketones Urine Blood Urine Nitrite Urine Bilirubin Urine Urobilinogen Ur Leukocyte Esterase 08/31/18 09/01/18 09/01/18 22:45 02:08 09:30 WBC RBC Hgb Hct MCV MCH MCHC RDW Plt Count MPV Absolute Neuts (auto) Neutrophils % Lymphocytes % Monocytes % Eosinophils % Basophils % Nucleated RBC % ESR PT with INR INR PTT (Actin FS) Sodium Potassium Chloride Carbon Dioxide Anion Gap BUN Creatinine Creat Clearance w eGFR Random Glucose Hemoglobin A1c % Calcium Magnesium Total Bilirubin AST ALT Alkaline Phosphatase Creatine Kinase Troponin I < 0.02 C-Reactive Protein Total Protein Albumin Triglycerides 37 Cholesterol 156 Total LDL Cholesterol 79 HDL Cholesterol 75 H TSH 1.70 Urine Color Yellow Urine Appearance Clear Urine pH 5.0 Ur Specific [place] 1.021 Urine Protein Negative Urine Glucose (UA) Negative Urine Ketones Negative Urine Blood Negative Urine Nitrite Negative Urine Bilirubin Negative Urine Urobilinogen 4.0 e.u/dl Ur Leukocyte Esterase Negative 09/01/18 09/01/18 09/01/18 09:30 09:30 09:30 WBC RBC Hgb Hct MCV MCH MCHC RDW Plt Count MPV Absolute Neuts (auto) Neutrophils % Lymphocytes % Monocytes % Eosinophils % Basophils % Nucleated RBC % ESR 16 PT with INR INR PTT (Actin FS) Sodium Potassium Chloride Carbon Dioxide Anion Gap BUN Creatinine Creat Clearance w eGFR Random Glucose Hemoglobin A1c % 5.0 Calcium Magnesium Total Bilirubin AST ALT Alkaline Phosphatase Creatine Kinase Troponin I C-Reactive Protein < 0.3 Total Protein Albumin Triglycerides Cholesterol Total LDL Cholesterol HDL Cholesterol TSH Urine Color Urine Appearance Urine pH Ur Specific [place] Urine Protein Urine Glucose (UA) Urine Ketones Urine Blood Urine Nitrite Urine Bilirubin Urine Urobilinogen Ur Leukocyte Esterase Active Medications Current Medications Acetaminophen (Tylenol -) 650 mg PO Q6H PRN PRN Reason: PAIN LEVEL 1-5 Last Admin: 09/01/18 09:01 Dose: 650 mg Aspirin (Asa -) 81 mg PO DAILY [facility] Last Admin: 09/01/18 11:09 Dose: 81 mg Atorvastatin Calcium (Lipitor -) 40 mg PO HS [facility] Brimonidine Tartrate (Alphagan 0.2% -) 1 drop OU TID [facility] Enoxaparin Sodium (Lovenox -) 40 mg SQ DAILY [facility] Last Admin: 09/01/18 11:10 Dose: 40 mg Latanoprost (Xalatan 0.005% Eye Drops -) 1 drop OU HS [facility] Montelukast Sodium (Singulair -) 10 mg PO HS [facility] Non-Formulary Medication (Brinzolamide [Azopt]) 15 ml OU DAILY [facility] Non-Formulary Medication (Netarsudil Mesylate [Rhopressa]) 2.5 ml OU DAILY [facility] Pantoprazole Sodium (Protonix -) 40 mg PO DAILY [facility] Home Medications Medication Instructions Recorded Brimonidine Tartrate [Alphagan 1 drop TID 08/31/18 0.2% -] Brinzolamide [Azopt] 15 ml OU DAILY 08/31/18 Latanoprost 0.005% Eye Drops 1 drop OU HS 08/31/18 [Xalatan 0.005% Eye Drops -] Montelukast Sodium [Singulair] 4 mg PO DAILY 08/31/18 Netarsudil Mesylate [Rhopressa] 2.5 ml OU DAILY 08/31/18 Omeprazole 20 mg PO DAILY 08/31/18 Montelukast Na [Singulair -] 10 mg PO DAILY 09/01/18 Omeprazole 40 mg PO DAILY 09/01/18 ASSESSMENT/PLAN: Patient is a 78 year old male with history of of asthma, glaucoma, cataracts (s/ p recent surgery), GERD, presents with complaint of left- sided chest pain. #Cardiology -Atypical chest pain Troponins negative X2 EKG: Bradycardia, RBBB, QTc 416 Cardiology consult (Dr. Valero) does not think this is cardiac in nature Echo: No pericardial effusion, LV normal, RV is borderline dilated, mild MR c/w Cardiac monitoring c/w Typenol 650mg PO Q6H for pain PRN c/w ASA 81mg -HLD c/w Lipitor 40mg #Pulmonology -Suspicious Lung Mass CT chest shows patchy nodular infiltrates in RUL, and RML, scattered subcentimeter pulmonary nodules b/l lower lobes, with hilar adenopathy b/l. Patient endorses recent unintentional weight loss, and has never had a colonoscopy Pulmonology consult (Dr. Espinoza) appreciated f/u Sputum culture w/ gram stain and fungal cultures f/u CT Chest w/ PO and IV contrast f/u PFTs ESR and CRP wnl ID consult (Dr. Ackerman) appreciated f/u Quantiferon Gold Low suspicion for TB therefore will not make Pt. contact precautions -Asthma c/w Singulair #Ophthalmology -Glaucoma -c/w Brimonidine, Latanoprost, Brinzolamide and Netarsudil eye drops #Gastroenterology -GERD c/w Protonix 40mg Daily #F/E/N -No IVF, encourage PO intake -monitor electrolytes and replete as needed -Regular Diet- If anticipating Stress test or bronchoscopy, will make NPO #DVT Ppx. -c/w Lovenox 40mg SQ Daily Visit type - Emergency Visit Emergency Visit: Yes ED Registration Date: 09/01/18 Care time: The patient presented to the Emergency Department on the above date and was hospitalized for further evaluation of their emergent condition. - New Patient This patient is new to me today: Yes Date on this admission: 09/01/18 - Critical Care Critical Care patient: No - Discharge Referral Referred to [facility] Med P.C.: No
[2018-09-01] MEDS: BRIMONIDINE TARTRATE 0.2% OPHTHALMIC 5 ML BOTTLE OU SCH ×2 (22:54→23:46)
[2018-09-01] MEDS: MONTELUKAST NA 10 MG TABLET PO SCH (23:46)
[2018-09-01] MEDS: ATORVASTATIN CA 40 MG TABLET (FP) PO SCH (23:46)
[2018-09-01] MEDS: LATANOPROST 0.005% OPHTH SOLN 2.5ML BOTTLE OU SCH (23:49)
[2018-09-01] MEDS ORDERED: PT OWN MED DRAWER 7, Y5N ONE (23:58)
[2018-09-02 00:10] VITALS: BMI 19.8
[2018-09-02] MEDS: BRIMONIDINE TARTRATE 0.2% OPHTHALMIC 5 ML BOTTLE OU SCH ×2 (05:29→13:43)
[2018-09-02 07:24] LABS: HEMATOCRIT 39.7 % (35.4-49); HEMOGLOBIN 13.5 GM/dL (11.7-16.9); MCH 30.9 pg (25.7-33.7); MCHC 33.9 g/dl (32.0-35.9); MEAN CELL VOLUME 91.1 fl (80-96); MEAN PLT VOLUME 7.2 fl (7.5-11.1); PLATELET COUNT 141 K/MM3 (134-434); RBC 4.36 M/mm3 (4.00-5.60); RDW 12.4 % (11.9-15.9)
[2018-09-02] MEDS ORDERED: SODIUM CHLORIDE 1,000 ML IV SCH (07:30)
[2018-09-02 09:12] LABS: ALBUMIN 3.2 g/dl (3.4-5.0); ALK PHOS 66 U/L (45-117); ANION GAP 8 MMOL/L (8-16); BILIRUBIN,TOTAL 0.6 mg/dL (0.2-1); BLOOD UREA NITROGEN 16 mg/dL (7-18); CALCIUM 8.5 mg/dL (8.5-10.1); CHLORIDE 105 mmol/L (98-107); CO2 26 mmol/L (21-32); CREATININE 0.8 mg/dL (0.55-1.3); GLUCOSE,RANDOM 77 mg/dL (74-106); MAGNESIUM 1.9 mg/dL (1.8-2.4); PHOSPHOROUS 2.7 mg/dL (2.5-4.9); POTASSIUM 3.9 mmol/L (3.5-5.1); SGOT/AST 19 U/L (15-37); SGPT/ALT 19 U/L (13-61); SODIUM 139 mmol/L (136-145); TOT PROT 6.6 g/dl (6.4-8.2)
[2018-09-02] MEDS ORDERED: PT OWN MED DRAWER 7, Y5N ONE ×3 (09:39→21:29)
--- NOTE | 2018-09-02 09:53 | PN ---
Progress Note (short form) - Note Progress Note: PULMONARY APPEARS MILDLY DYSPNEIC THIS AM VSS/AFEBRILE ANICTERIC SCATTERED RIGHT SIDED POSTERIOR LUNG FIELD RHONCHI S1S2 BS+ +EPIGASTRIC TENDERNESS TO PALPATION NO EDEMA LABS REVIEWED NL ESR/NL CRP/NL WBC/CHEM NL HAVE ORDERED SPUTUM FUNGAL/AFB/GRAM STAIN BONE SCAN CT ABD/PELVIS HIV/ASPERGILLUS ANTIBODIES CEA LEVEL SPO2 POST AMBULATION WILL FOLLOW Tammy HENDRICKS MD Problem List - Problems (1) Atypical chest pain Code(s): R07.89 - OTHER CHEST PAIN (2) Pulmonary nodules Code(s): R91.8 - OTHER NONSPECIFIC ABNORMAL FINDING OF LUNG FIELD (3) RBBB Code(s): I45.10 - UNSPECIFIED RIGHT BUNDLE-BRANCH BLOCK
[2018-09-02] MEDS: ENOXAPARIN NA (PORCINE) 40 MG/0.4 ML DISP.SYRIN SQ SCH (10:30)
[2018-09-02] MEDS: PANTOPRAZOLE 40 MG TABLET (FP) PO SCH (10:31)
[2018-09-02] MEDS: ASPIRIN 81 MG CHEWABLE TABLETS PO SCH (10:31)
--- NOTE | 2018-09-02 11:11 | PN ---
Progress Note (short form) - Note Progress Note: cc: cp s: no cp, palps, dizzy, dyspnea, edema Current Medications Acetaminophen (Tylenol -) 650 mg PO Q6H PRN PRN Reason: PAIN LEVEL 1-5 Last Admin: 09/01/18 09:01 Dose: 650 mg Aspirin (Asa -) [address] [facility] Last Admin: 09/02/18 10:31 Dose: 81 mg Atorvastatin Calcium (Lipitor -) [address] [facility] Last Admin: 09/01/18 23:46 Dose: 40 mg Brimonidine Tartrate (Alphagan 0.2% -) [address] [facility] Last Admin: 09/02/18 05:29 Dose: Not Given Enoxaparin Sodium (Lovenox -) [address] [facility] Last Admin: 09/02/18 10:30 Dose: 40 mg Sodium Chloride (Normal Saline -) 1,000 mls @ 100 mls/hr IV ASDIR [facility] Stop: 09/02/18 19:29 Last Admin: 09/02/18 09:00 Dose: 100 mls/hr Latanoprost (Xalatan 0.005% Eye Drops -) [address] [facility] Last Admin: 09/01/18 23:49 Dose: 1 drop Montelukast Sodium (Singulair -) [address] [facility] Last Admin: 09/01/18 23:46 Dose: 10 mg Non-Formulary Medication (Brinzolamide [Azopt]) [address] [facility] Non-Formulary Medication (Netarsudil Mesylate [Rhopressa]) 2.[address] [facility] Pantoprazole Sodium (Protonix -) [address] [facility] Last Admin: 09/02/18 10:31 Dose: 40 mg pe: Vital Signs Period Temp Pulse Resp BP Sys/Nguyen Pulse Ox Last 24 Hr 97.4 F-98.0 F 56-82 16-20 106-143/59-84 96-98 nad no jvd rrr s1 s2 no mrg cta bl nl eff aaox3 no le e/c/c abd nt nd pos bs no jaundice diaphoresis pos dp pt no carotid bruits ecg: sr 54, nl pr, rbbb cta chest: no pe, no chf, b/l nodular infiltrates, and hilar LN echo 08/2018: nl lv/rv, mild ar a/p: 78 m no sig pmhx here with cp. cp: -trops neg, cp atypical, echo unremarkable, no signs acs -during exam pt had episode of this cp and he twitched when he felt it shooting in his left axilla/chest, this is not typical for cardiac pain, seems more MSK/ nerve related. - Pt has multiple pulmonary findings on ct, pulm following - dc tele abnl ecg: -ecg with rbbb, no olds to compare -no signs acs -echo unremarkable -outpt f/u ar: -mild ar on echo here, outpt f/u
--- NOTE | 2018-09-02 11:38 | PN ---
Teaching Attending Note Name of Resident: Nestor Nix ATTENDING PHYSICIAN STATEMENT I saw and evaluated the patient. I reviewed the resident's note and discussed the case with the resident. I agree with the resident's findings and plan as documented. SUBJECTIVE: no CP today, no fever or chills. clear sputum. OBJECTIVE: NAD. awake , alert. CV: RRR. No MRG Lungs: CTAB Ext: no edema or erythema. MS; no tenderness over chest wall today clear sputum in cup ASSESSMENT AND PLAN: 78 y/o man with h/o asthma who presented with L sided CP, and was found to have b/l lung nodules and infiltrates . 1- Atypical CP: resolved, cardiac w/u not revealing so far. rib xray and CT scan with no rib fx. 2- Pulmonary infiltrates and nodules : Unclear etiology. - w/u pending : CT , sputum studies, CEA, Id eval, aspergilus Abs, and HIV - Pre-post ambulatory pulse ox - appreciate Pulm input - QTF pending
--- NOTE | 2018-09-02 12:49 | EKG ---
Test Reason : Blood Pressure : / mmHG Vent. Rate : 065 BPM Atrial Rate : 065 BPM P-R Int : 130 ms QRS Dur : 128 ms QT Int : 426 ms P-R-T Axes : 073 027 069 degrees QTc Int : 443 ms NORMAL SINUS RHYTHM RIGHT BUNDLE BRANCH BLOCK ABNORMAL ECG NO PREVIOUS ECGS AVAILABLE Confirmed by LUCA SADLER MD ([id number]) on 09/02/2018 12:48:35 PM Referred By: Confirmed By:LUCA SADLER MD
--- NOTE | 2018-09-02 13:36 | CON.ID ---
Consult Consult Specialty:: infectious diseases - Past Medical History MANAGER ESTATE: No: Alzheimer's Cardio/Vascular: No: AFIB Pulmonary: Yes: Asthma, Pneumonia. No: COPD, O2 Dependent Gastrointestinal: No: Ascites Hepatobiliary: No: Cirrhosis Renal/: No: Renal Failure Psych: No: Addictions Musculoskeletal: No: Bursitis Rheumatology: No: Lupus ENT: No: Allergic Rhinitis Endocrine: No: Diabetes Mellitus - Past Surgical History Past Surgical History: Yes: Cataract Removal - Alcohol/Substance Use Hx Alcohol Use: Yes (one glass wine) History of Substance Use: reports: None - Smoking History Smoking history: Never smoked Have you smoked in the past 12 months: No - Social History Usual Living Arrangement: With Spouse ADL: Independent History of Recent Travel: No Home Medications - Allergies Allergies/Adverse Reactions: Allergies Allergy/AdvReac Type Severity Reaction Status Date / Time diphenhydramine Allergy Verified 08/31/18 20:46 [From Benadryl] meperidine [From Demerol] Allergy Verified 08/31/18 20:47 shellfish derived Allergy Swelling Verified 09/02/18 00:22 shrimp Allergy Swelling Verified 09/02/18 00:22 iodine AdvReac Verified 09/02/18 00:22 - Home Medications Home Medications: Ambulatory Orders Brinzolamide [Azopt] 1 drop OU BID 08/31/18 Latanoprost 0.005% Eye Drops [Xalatan 0.005% Eye Drops -] 1 drop OU HS 08/31/18 Netarsudil Mesylate [Rhopressa] 1 drop OU HS 08/31/18 Montelukast Na [Singulair -] 10 mg PO HS 09/01/18 Omeprazole 40 mg PO DAILY 09/01/18 Brimonidine Tartrate [Alphagan 0.2% -] 1 drop OU BID 09/02/18 Vit A/Vit C/Vit E/Zinc/Copper [Preservision Areds Softgel] 1 each PO BID Physical Exam Vital Signs: Vital Signs Temperature 97.8 F 09/02/18 06:00 Pulse Rate 82 09/02/18 10:31 Respiratory Rate 20 09/02/18 11:00 Blood Pressure 126/84 09/02/18 06:00 O2 Sat by Pulse Oximetry (%) 98 09/02/18 11:00 Labs: CBC, BMP 09/02/18 06:10 11/03/18 06:10
--- NOTE | 2018-09-02 14:36 | PN ---
Physical Exam: SUBJECTIVE: Patient seen and examined at bedside. No acute events. Pt no longer complains of pain. Feels well. Family at bedside. OBJECTIVE: Vital Signs Period Temp Pulse Resp BP Sys/Nguyen Pulse Ox Last 24 Hr 97.4 F-98.0 F 55-82 16-20 106-143/59-84 96-98 Gen: well appearing, nad HEENT: L supraorbital fullness, ? lacrimal, EOMI Neck: supple, no jvd Cardio: rrr, normal s1s2, no m/r/g appreciated Pulm: cta b/l no rales/ronchi Abd: soft, nondistended, nontender Ext: no edema, 2+ pulses Laboratory Results - last 24 hr 09/02/18 09/02/18 09/02/18 06:10 06:10 08:30 WBC 5.0 RBC 4.36 Hgb 13.5 Hct 39.7 MCV 91.1 MCH 30.9 MCHC 33.9 RDW 12.4 Plt Count 141 MPV 7.2 L Sodium 139 Potassium 3.9 Chloride 105 Carbon Dioxide 26 Anion Gap 8 BUN 16 Creatinine 0.8 Creat Clearance w eGFR > 60 Random Glucose 77 Calcium 8.5 Phosphorus 2.7 Magnesium 1.9 Total Bilirubin 0.6 AST 19 ALT 19 Alkaline Phosphatase 66 Troponin I < 0.02 Total Protein 6.6 Albumin 3.2 L HIV 1&2 Antibody Screen Negative HIV P24 Antigen Negative Active Medications Generic Name Dose Route Start Last Admin Trade Name Freq PRN Reason Stop Dose Admin Acetaminophen 650 mg 09/01/18 05:09 09/01/18 09:01 Tylenol - PO 650 mg Q6H PRN Administration PAIN LEVEL 1-5 Aspirin 81 mg 09/01/18 10:00 09/02/18 10:31 Asa - PO 81 mg DAILY [facility] Administration Atorvastatin Calcium 40 mg 09/01/18 22:00 09/01/18 23:46 Lipitor - PO 40 mg HS [facility] Administration Brimonidine Tartrate 1 drop 09/01/18 07:00 09/02/18 13:43 Alphagan 0.2% - OU Not Given TID [facility] Enoxaparin Sodium 40 mg 09/01/18 10:00 09/02/18 10:30 Lovenox - SQ 40 mg DAILY [facility] Administration Sodium Chloride 1,000 mls @ 100 mls/hr 09/02/18 07:30 11/03/18 09:00 Normal Saline - IV 09/02/18 19:29 100 mls/hr ASDIR [facility] Administration Latanoprost 1 drop 09/01/18 22:00 09/01/18 23:49 Xalatan 0.005% Eye Drops - OU 1 drop HS [facility] Administration Montelukast Sodium 10 mg 09/01/18 22:00 09/01/18 23:46 Singulair - PO 10 mg HS [facility] Administration Non-Formulary Medication 15 ml 09/01/18 10:00 Brinzolamide [Azopt] OU DAILY [facility] Non-Formulary Medication 2.5 ml 09/01/18 10:00 Netarsudil Mesylate [Rhopressa] OU DAILY [facility] Pantoprazole Sodium 40 mg 09/02/18 10:00 09/02/18 10:31 Protonix - PO 40 mg DAILY [facility] Administration ASSESSMENT/PLAN: Pt is a pleasant 78 year old gentleman with PMH of of asthma, glaucoma, cataracts (s/p recent surgery), GERD, presents with complaint of left sided chest pain. Pt was admitted for ACS workup, which was unremarkable. Incidentally abnormal lung imaging was found and is being worked up. #ACS r/o -atypical CP, left sided, sharp, nonradiating, reproducible -trop neg x2 -ekg with with no ischemic changes. RBBB -Echo normal -CP resolved -Cardio input appreciated #Pulm infiltrates -? atypical PNA -interstitial nodular changes on CXR, patchy bilateral nodular infiltrates on Chest CT -pt recently had a PNA 6 weeks ago treated with PO Abx ?Amoxicillin and not requiring hospitalization -pt describes weight loss (has reported 6lbs over 6 months and 15 lbs over 6 months) -ESR/CRP normal -CEA, sputum fungal, AFB, gram stain ordered -CTAP ordered -pre & post ordered -Bone scan ordered -Pulm input appreciated -f/u ID recs #FEN -not on fluid -lytes wnl -reg diet #PPx -lovenox #Dispo -admit to tele Nestor Nix MD PGY-2 IM Visit type - Emergency Visit Emergency Visit: No - New Patient This patient is new to me today: No - Critical Care Critical Care patient: No - Discharge Referral Referred to [facility] Med P.C.: No
[2018-09-02] MEDS: BRINZOLAMIDE OU SCH (20:34)
[2018-09-02] MEDS: BRIMONIDINE TARTRATE 0.1% OPHTHALMIC 5 ML BOTTLE OU SCH (21:31)
[2018-09-02] MEDS: LATANOPROST 0.005% OPHTH SOLN 2.5ML BOTTLE OU SCH (21:32)
[2018-09-02] MEDS: MONTELUKAST NA 10 MG TABLET PO SCH (21:33)
[2018-09-02] MEDS: ATORVASTATIN CA 40 MG TABLET (FP) PO SCH (21:33)
[2018-09-03] MEDS ORDERED: PT OWN MED DRAWER 7, Y5N ONE (09:26)
[2018-09-03] MEDS: BRIMONIDINE TARTRATE 0.1% OPHTHALMIC 5 ML BOTTLE OU SCH (09:51)
[2018-09-03] MEDS: ENOXAPARIN NA (PORCINE) 40 MG/0.4 ML DISP.SYRIN SQ SCH (09:52)
[2018-09-03] MEDS: BRINZOLAMIDE OU SCH (09:52)
[2018-09-03] MEDS: ASPIRIN 81 MG CHEWABLE TABLETS PO SCH (09:52)
[2018-09-03] MEDS: PANTOPRAZOLE 40 MG TABLET (FP) PO SCH (09:52)
--- NOTE | 2018-09-03 11:07 | PN ---
Progress Note (short form) - Note Progress Note: cc: cp s: no cp, palps, dizzy, dyspnea, edema Current Medications Acetaminophen (Tylenol -) 650 mg PO Q6H PRN PRN Reason: PAIN LEVEL 1-5 Last Admin: 09/01/18 09:01 Dose: 650 mg Aspirin (Asa -) 81 mg PO DAILY [facility] Last Admin: 09/03/18 09:52 Dose: 81 mg Atorvastatin Calcium (Lipitor -) 40 mg PO HS [facility] Last Admin: 09/02/18 21:33 Dose: 40 mg Brimonidine Tartrate (Alphagan P 0.1% -) 1 drop OU BID [facility] Last Admin: 09/03/18 09:51 Dose: 1 drop Enoxaparin Sodium (Lovenox -) 40 mg SQ DAILY [facility] Last Admin: 09/03/18 09:52 Dose: 40 mg Latanoprost (Xalatan 0.005% Eye Drops -) 1 drop OU HS [facility] Last Admin: 09/02/18 21:32 Dose: 1 drop Montelukast Sodium (Singulair -) 10 mg PO HS [facility] Last Admin: 09/02/18 21:33 Dose: 10 mg (Brinzolamide [Azopt ] 15 Ml) Non- Formulary Med 1 each OU DAILY [facility] Last Admin: 09/03/18 09:52 Dose: 1 each Non-Formulary Medication (Netarsudil Mesylate [Rhopressa]) 2.5 ml OU DAILY [facility] Pantoprazole Sodium (Protonix -) 40 mg PO DAILY [facility] Last Admin: 09/03/18 09:52 Dose: 40 mg pe: Vital Signs Period Temp Pulse Resp BP Sys/Nguyen Pulse Ox Last 24 Hr 97.7 F-98.1 F 55-69 18-20 125-154/55-81 100 nad no jvd rrr s1 s2 no mrg cta bl nl eff aaox3 no le e/c/c abd nt nd pos bs no jaundice diaphoresis pos dp pt no carotid bruits ecg: sr 54, nl pr, rbbb cta chest: no pe, no chf, b/l nodular infiltrates, and hilar LN echo 08/2018: nl lv/rv, mild ar a/p: 78 m no sig pmhx here with cp. cp: -trops neg, cp atypical, echo unremarkable, no signs acs -during exam pt had episode of this cp and he twitched when he felt it shooting in his left axilla/chest, this is not typical for cardiac pain, seems more MSK/ nerve related. - Pt has multiple pulmonary findings on ct, pulm following - dc tele, stable for discharge from cardiac perspective abnl ecg: -ecg with rbbb, no olds to compare -no signs acs -echo unremarkable -outpt f/u ar: -mild ar on echo here, outpt f/u
--- NOTE | 2018-09-03 11:40 | PN ---
Progress Note (short form) - Note Progress Note: PULMONARY WANTS TO GO HOME VSS/AFEBRILE ANICTERIC CLEAR B/L BREATH SOUNDS S1S2 BS+ SOFT NONTENDER NO EDEMA LABS REVIEWED NL ESR/NL CRP/NL WBC/CHEM NL/HIV -/CEA- CT ABD/PELVIS NL SPO2 POST AMBULATION DID NOT REVEAL DESATURATION SPUTUM PENDING/ASPERGILLIS ABS PENDING BONE SCAN PENDING MAY ULTIMATELY NEED FOB PATIENT MAY HAVE ALL OF THE ABOVE AN OUTPATIENT WILL FOLLOW IN OFFICE IF DISCHARGED TODAY Tammy HENDRICKS MD Problem List - Problems (1) Atypical chest pain Code(s): R07.89 - OTHER CHEST PAIN (2) Pulmonary nodules Code(s): R91.8 - OTHER NONSPECIFIC ABNORMAL FINDING OF LUNG FIELD (3) RBBB Code(s): I45.10 - UNSPECIFIED RIGHT BUNDLE-BRANCH BLOCK
--- NOTE | 2018-09-03 13:06 | PN ---
Progress Note, Physician - Current Medication List Current Medications: Active Medications Acetaminophen (Tylenol -) 650 mg PO Q6H PRN PRN Reason: PAIN LEVEL 1-5 Last Admin: 09/01/18 09:01 Dose: 650 mg Aspirin (Asa -) 81 mg PO DAILY [facility] Last Admin: 09/03/18 09:52 Dose: 81 mg Atorvastatin Calcium (Lipitor -) 40 mg PO HS [facility] Last Admin: 09/02/18 21:33 Dose: 40 mg Brimonidine Tartrate (Alphagan P 0.1% -) 1 drop OU BID [facility] Last Admin: 09/03/18 09:51 Dose: 1 drop Enoxaparin Sodium (Lovenox -) 40 mg SQ DAILY [facility] Last Admin: 09/03/18 09:52 Dose: 40 mg Latanoprost (Xalatan 0.005% Eye Drops -) 1 drop OU HS [facility] Last Admin: 09/02/18 21:32 Dose: 1 drop Montelukast Sodium (Singulair -) 10 mg PO HS [facility] Last Admin: 09/02/18 21:33 Dose: 10 mg (Brinzolamide [Azopt ] 15 Ml) Non- Formulary Med 1 each OU DAILY [facility] Last Admin: 09/03/18 09:52 Dose: 1 each Non-Formulary Medication (Netarsudil Mesylate [Rhopressa]) 2.5 ml OU DAILY [facility] Pantoprazole Sodium (Protonix -) 40 mg PO DAILY [facility] Last Admin: 09/03/18 09:52 Dose: 40 mg - Objective Vital Signs: Vital Signs Temperature 97.8 F 09/03/18 02:00 Pulse Rate 60 09/03/18 02:00 Respiratory Rate 20 09/03/18 02:00 Blood Pressure 134/55 L 09/03/18 02:00 O2 Sat by Pulse Oximetry (%) 100 09/02/18 19:00 Labs: CBC, BMP 09/02/18 06:10 09/02/18 06:10 INR, PTT INR 0.96 (0.83-1.09) 08/31/18 21:36
--- NOTE | 2018-09-03 14:25 | PN ---
Progress Note (short form) - Note Progress Note: Subjective: no cp , no fever ro chills. No cough . wants to go home Objective: Vital Signs: Last Vital Signs Temp Pulse Resp BP Pulse Ox 97.7 F 63 18 107/59 L 97 09/03/18 10:00 09/03/18 10:00 09/03/18 10:00 09/03/18 10:00 09/03/18 10:00 Laboratory Results - last 24 hr 09/02/18 06:10 Carcinoembryonic Ag 1.9 Physical Exam: NAD. awake , alert. CV: RRR. No MRG Lungs: CTAB Ext: no edema or erythema. MS; no tenderness over chest wall ASSESSMENT AND PLAN: 78 y/o man with h/o asthma who presented with L sided CP, and was found to have b/l lung nodules and infiltrates . 1- Atypical CP:resolved. of unclear etiology 2- Pulmonary infiltrates and nodules : Unclear etiology. infectious vs inflammatory . CT of abd with no masses - w/u pending : sputum studies, aspergilus Abs. - will need bone scan as out pt . - US of axilla pending . pt elected out pt . might need mammo and further w/u - Pre-post ambulatory pulse ox with no O2 requirement - QTF pending pulm and ID f/u. rest of w/u can be done as out pt dc home . d/w pulm Visit type - Emergency Visit Emergency Visit: Yes ED Registration Date: 09/01/18 Care time: The patient presented to the Emergency Department on the above date and was hospitalized for further evaluation of their emergent condition. - New Patient This patient is new to me today: No - Critical Care Critical Care patient: No
[2018-09-03 14:29] VITALS: BP 128/59; PULSE 62; TEMP 97.6
--- NOTE | 2018-09-05 14:45 | DS ---
Physical Exam: SUBJECTIVE: Patient not seen and examined. Chart reviewed. OBJECTIVE: PHYSICAL EXAM As Per Chart Review per Dr. Gilmore Physical Exam: NAD. awake , alert. CV: RRR. No MRG Lungs: CTAB Ext: no edema or erythema. MS; no tenderness over chest wall LABS HOSPITAL COURSE: Date of Admission:09/01/18 Date of Discharge: 09/05/18 Pt. observed in ED for left-sided localized chest pain reproducible on palpation. EKG: NSR, Echo: grossly normal. Cardiac etiology ruled out. CXR and CT-Chest shows patchy nodular infiltrates in RUL, and RML, scattered subcentimeter pulmonary nodules b/l lower lobes, with hilar adenopathy b/l. CT-A /P show no acute pathology. Consults to Pulmonology, Cardiology and Infectious disease appreciated. Follow-up reccomendation relayed to Pt. as noted below. Hospital course discussed with and agreed upon with Pt. Minutes to complete discharge: 34 Discharge Summary Reason For Visit: ATYPICAL CHEST PAIN,MULTIPLE PULMONARY NODULE Condition: Improved - Instructions Diet, Activity, Other Instructions: You came in to the hospital for left chest pain. On one of the imaging studies we performed we saw some "nodules" in your lungs. Please have a repeat Chest-CT in 2-3 weeks to evaluate for changes. Please follow up with your Primary Care doctor within 1 week. please follow with dr. Ackerman from infectious disease Please follow up with your Md Senior Research Scientist Dr. espinoza , within 1-2 weeks, for Pulmonary Function tests and further evaluation of your lung nodules. Please return to the hospital if you are experiencing chest pressure, sudden onset shortness of breath or if you have concerning symptoms. the thickened structure in your left axilla need to be followed by your PCP. you need ultrasound of this structure and maybe a mammogram to your breasts. It might need to be biopsied, and it should not ignored. YOu valeri need further work up as out patient including pulmonary function tests, bone scan, other blood and sputum tests. important to follow Good luck Referrals: Rosales Ackerman MD [Staff Physician] - 1 Week Skip Espinoza MD [Staff Physician] - 1 Week Victor Manuel Valero MD [Staff Physician] - 2 Weeks Disposition: HOME - Home Medications Comprehensive Discharge Medication List: Ambulatory Orders Brinzolamide [Azopt] 1 drop OU BID 08/31/18 Latanoprost 0.005% Eye Drops [Xalatan 0.005% Eye Drops -] 1 drop OU HS 08/31/18 Netarsudil Mesylate [Rhopressa] 1 drop OU HS 08/31/18 Montelukast Na [Singulair -] 10 mg PO HS 09/01/18 Omeprazole 40 mg PO DAILY 09/01/18 Brimonidine Tartrate [Alphagan P 0.1% -] 1 drop OU BID 09/02/18 Vit A/Vit C/Vit E/Zinc/Copper [Preservision Areds Softgel] 1 each PO BID This patient is new to me today: No Emergency Visit: Yes ED Registration Date: 09/01/18 Care time: The patient presented to the Emergency Department on the above date and was hospitalized for further evaluation of their emergent condition. Critical Care patient: No - Discharge Referral Referred to [facility] Med P.C.: No
== END 2018-09-03 15:00 | disposition home or self-care (01) | DRG 313 ==
LOC: JER 20:36 → JERBED 09-01 01:08 → INTOOBSV 09-01 01:08 → OBSVTOIN 09-01 05:09 → J4S 09-01 23:03
PROVIDERS: ADMIT Internal Medicine; ATTEND Internal Medicine
DX: R07.89 Other chest pain (principal); Z68.1 Body mass index [BMI] 19.9 or less, adult; I45.10 Unspecified right bundle-branch block; K21.9 Gastro-esophageal reflux disease without esophagitis; J45.909 Unspecified asthma, uncomplicated; H40.9 Unspecified glaucoma; R63.4 Abnormal weight loss; R94.31 Abnormal electrocardiogram [ECG] [EKG]; I35.1 Nonrheumatic aortic (valve) insufficiency; R91.8 Other nonspecific abnormal finding of lung field
CPT/HCPCS: 36415; 71046-TC-FY; 71101-TC-FY; 71275-TC; 74177-TC; 80053; 80061; 81003; 82378; 82550; 83036; 83721; 83735; 84100; 84443; 84484; 85025; 85027; 85610; 85651; 85730; 86140; 86480; 87070; 87086; 87102; 87116; 87205; 87206; 87210; 87389; 93005; 93010; 93306-TC; 94761; 99285-25; G0378; J7030

== ENCOUNTER 2022-12-14 12:56 | Inpatient (IN) | payer OTHER, MEDICARE ==
[2022-12-14] MEDS ORDERED: ALBUTEROL SO4 2.5/IPRATROPIUM 0.5 INH SOL 3 ML VIAL.NEB. NEB ONE ×2 (14:01→14:07)
[2022-12-14] MEDS ORDERED: methylPREDNISolone NA SUCC 40 MG/1 ML VIAL IVPUSH ONE (14:01)
[2022-12-14] MEDS ORDERED: methylPREDNISolone NA SUCC 40 MG/1 ML VIAL ONE ×2 (14:08→18:47)
[2022-12-14] MEDS ORDERED: CEFTRIAXONE 1 GM in DEXTROSE 5%-WATER - 50 ML IVPB ONE (14:51)
[2022-12-14 15:09] LABS: BASO % 0.3 % (0-2.0); HEMATOCRIT 31.6 % (35.4-49); HEMOGLOBIN 11.1 GM/dL (11.7-16.9); LYMPH % 10.5 % (8-40); MCH 33.6 pg (25.7-33.7); MCHC 35.1 g/dl (32.0-35.9); MEAN CELL VOLUME 95.9 fl (80-96); MONO % 11.4 % (3.8-10.2); NEUT % 71.8 % (42.8-82.8); PLATELET COUNT 147 10^3/uL (134-434); RBC 3.29 M/mm3 (4.00-5.60); RDW 13.1 % (11.9-15.9); WHITE BLOOD COUNT 3.5 K/mm3 (4.0-10.0)
[2022-12-14] MEDS ORDERED: CEFTRIAXONE 1 GM/50 ML BAG ONE (15:13)
[2022-12-14 15:29] LABS: BLOOD UREA NITROGEN 16.6 mg/dL (7-18); CALCIUM 8.3 mg/dL (8.5-10.1); MAGNESIUM 1.9 mg/dL (1.8-2.4)
[2022-12-14 15:31] LABS: ALBUMIN 2.5 g/dl (3.4-5.0)
[2022-12-14 15:33] LABS: CREATININE 0.7 mg/dL (0.55-1.3); PHOSPHOROUS 2.7 mg/dL (2.5-4.9)
[2022-12-14 15:35] LABS: BILIRUBIN,TOTAL 0.4 mg/dL (0.2-1); TOT PROT 8.1 g/dl (6.4-8.2)
[2022-12-14] MEDS ORDERED: ALBUTEROL SO4 2.5/IPRATROPIUM 0.5 INH SOL 3 ML VIAL.NEB. NEB PRN (17:34)
[2022-12-14] MEDS: methylPREDNISolone NA SUCC 40 MG/1 ML VIAL IVPUSH SCH (18:41)
[2022-12-14] MEDS ORDERED: PATIENT'S OWN MEDICATION (NON-FORMULARY) (Netarsudil Mesylate [Rhopressa] 2.5 ML Drops) OU SCH (22:00)
[2022-12-14] MEDS: LATANOPROST 0.005% OPHTH SOLN 2.5ML BOTTLE OU SCH (22:56)
[2022-12-14] MEDS: BRIMONIDINE TARTRATE 0.1% OPHTHALMIC 5 ML BOTTLE OU SCH (22:56)
[2022-12-14] MEDS: MONTELUKAST NA 10 MG TABLET PO SCH (22:56)
[2022-12-14] MEDS: DORZOLAMIDE 2% HCL OPHTHALMIC SOLUTION 10 ML BOTTLE OU SCH (22:56)
[2022-12-14] MEDS: DOXYCYCLINE INJECTION 100 MG in DEXTROSE 5%-WATER 100 ML IVPB SCH (22:56)
[2022-12-15] MEDS: methylPREDNISolone NA SUCC 40 MG/1 ML VIAL IVPUSH SCH ×3 (01:06→17:36)
[2022-12-15] MEDS: DORZOLAMIDE 2% HCL OPHTHALMIC SOLUTION 10 ML BOTTLE OU SCH ×3 (05:32→23:49)
[2022-12-15 08:01] LABS: HEMATOCRIT 33.7 % (35.4-49); HEMOGLOBIN 11.8 GM/dL (11.7-16.9); MCH 33.8 pg (25.7-33.7); MCHC 35.2 g/dl (32.0-35.9); MEAN CELL VOLUME 96.1 fl (80-96); MEAN PLT VOLUME 6.8 fl (7.5-11.1); PLATELET COUNT 154 10^3/uL (134-434); RDW 13.3 % (11.9-15.9); WHITE BLOOD COUNT 3.7 K/mm3 (4.0-10.0)
[2022-12-15 09:08] LABS: CALCIUM 8.7 mg/dL (8.5-10.1)
[2022-12-15 09:10] LABS: BLOOD UREA NITROGEN 20.3 mg/dL (7-18)
[2022-12-15 09:13] LABS: CREATININE 0.7 mg/dL (0.55-1.3)
[2022-12-15] MEDS: DOXYCYCLINE INJECTION 100 MG in DEXTROSE 5%-WATER 100 ML IVPB SCH ×2 (10:00→21:21)
[2022-12-15] MEDS: CEFTRIAXONE 1 GM in DEXTROSE 5%-WATER - 50 ML IVPB SCH (10:00)
[2022-12-15] MEDS: ENOXAPARIN NA (PORCINE) 40 MG/0.4 ML DISP.SYRIN SQ SCH (10:00)
[2022-12-15] MEDS: BRIMONIDINE TARTRATE 0.1% OPHTHALMIC 5 ML BOTTLE OU SCH ×2 (10:01→23:48)
[2022-12-15] MEDS: PANTOPRAZOLE 40 MG TABLET PO SCH (10:01)
[2022-12-15] MEDS ORDERED: guaiFENesin/D-METHORPHAN HB 10 ML UNIT-DOSE CUPS PO PRN (16:09)
[2022-12-15] MEDS: MONTELUKAST NA 10 MG TABLET PO SCH (21:21)
[2022-12-15] MEDS: LATANOPROST 0.005% OPHTH SOLN 2.5ML BOTTLE OU SCH (23:49)
[2022-12-16] MEDS: methylPREDNISolone NA SUCC 40 MG/1 ML VIAL IVPUSH SCH ×3 (02:00→19:00)
[2022-12-16] MEDS: DORZOLAMIDE 2% HCL OPHTHALMIC SOLUTION 10 ML BOTTLE OU SCH ×2 (06:37→14:29)
[2022-12-16] MEDS: ENOXAPARIN NA (PORCINE) 40 MG/0.4 ML DISP.SYRIN SQ SCH (10:42)
[2022-12-16] MEDS: DOXYCYCLINE INJECTION 100 MG in DEXTROSE 5%-WATER 100 ML IVPB SCH (10:44)
[2022-12-16] MEDS: PANTOPRAZOLE 40 MG TABLET PO SCH (10:44)
[2022-12-16] MEDS: BRIMONIDINE TARTRATE 0.1% OPHTHALMIC 5 ML BOTTLE OU SCH (11:07)
[2022-12-16] MEDS: CEFTRIAXONE 1 GM in DEXTROSE 5%-WATER - 50 ML IVPB SCH (11:08)
[2022-12-16] MEDS ORDERED: ALBUTEROL SO4 0.083% IH SOL 2.5 MG/3 ML VIAL.NEB. NEB PRN (12:14)
[2022-12-16] MEDS: ALBUTEROL SO4 2.5/IPRATROPIUM 0.5 INH SOL 3 ML VIAL.NEB. NEB SCH ×2 (14:00→20:16)
[2022-12-16 14:22] VITALS: BMI 16.7
[2022-12-16] MEDS: MONTELUKAST NA 10 MG TABLET PO SCH (22:00)
[2022-12-16] MEDS: LATANOPROST 0.005% OPHTH SOLN 2.5ML BOTTLE OU SCH (22:00)
[2022-12-17] MEDS: BRIMONIDINE TARTRATE 0.1% OPHTHALMIC 5 ML BOTTLE OU SCH ×3 (01:11→22:02)
[2022-12-17] MEDS: DORZOLAMIDE 2% HCL OPHTHALMIC SOLUTION 10 ML BOTTLE OU SCH ×4 (01:14→22:02)
[2022-12-17] MEDS: DOXYCYCLINE INJECTION 100 MG in DEXTROSE 5%-WATER 100 ML IVPB SCH ×3 (01:16→21:56)
[2022-12-17] MEDS: methylPREDNISolone NA SUCC 40 MG/1 ML VIAL IVPUSH SCH ×3 (03:12→18:48)
[2022-12-17] MEDS: ALBUTEROL SO4 2.5/IPRATROPIUM 0.5 INH SOL 3 ML VIAL.NEB. NEB SCH ×3 (08:50→21:16)
[2022-12-17 09:57] LABS: BLOOD UREA NITROGEN 31.4 mg/dL (7-18)
[2022-12-17 10:06] LABS: CALCIUM 8.6 mg/dL (8.5-10.1)
[2022-12-17 10:08] LABS: CREATININE 0.9 mg/dL (0.55-1.3)
[2022-12-17] MEDS: ENOXAPARIN NA (PORCINE) 40 MG/0.4 ML DISP.SYRIN SQ SCH (10:26)
[2022-12-17] MEDS: MULTIVITAMINS (DAILY MVI) TABLET (FP) PO SCH (10:27)
[2022-12-17] MEDS: PANTOPRAZOLE 40 MG TABLET PO SCH (10:27)
[2022-12-17] MEDS: CEFTRIAXONE 1 GM in DEXTROSE 5%-WATER - 50 ML IVPB SCH (13:33)
[2022-12-17] MEDS: MONTELUKAST NA 10 MG TABLET PO SCH (21:56)
[2022-12-17] MEDS: LATANOPROST 0.005% OPHTH SOLN 2.5ML BOTTLE OU SCH (22:02)
[2022-12-18] MEDS: methylPREDNISolone NA SUCC 40 MG/1 ML VIAL IVPUSH SCH ×3 (02:46→22:10)
[2022-12-18] MEDS: DORZOLAMIDE 2% HCL OPHTHALMIC SOLUTION 10 ML BOTTLE OU SCH ×3 (06:00→22:12)
[2022-12-18] MEDS: ALBUTEROL SO4 2.5/IPRATROPIUM 0.5 INH SOL 3 ML VIAL.NEB. NEB SCH ×3 (07:50→19:51)
[2022-12-18] MEDS: ENOXAPARIN NA (PORCINE) 40 MG/0.4 ML DISP.SYRIN SQ SCH (09:11)
[2022-12-18] MEDS: MULTIVITAMINS (DAILY MVI) TABLET (FP) PO SCH (09:12)
[2022-12-18] MEDS: PANTOPRAZOLE 40 MG TABLET PO SCH (09:12)
[2022-12-18] MEDS: DOXYCYCLINE INJECTION 100 MG in DEXTROSE 5%-WATER 100 ML IVPB SCH ×2 (09:12→22:10)
[2022-12-18] MEDS: CEFTRIAXONE 1 GM in DEXTROSE 5%-WATER - 50 ML IVPB SCH (09:13)
[2022-12-18] MEDS: BRIMONIDINE TARTRATE 0.1% OPHTHALMIC 5 ML BOTTLE OU SCH ×2 (09:17→22:12)
[2022-12-18 10:25] LABS: HEMOGLOBIN 11.9 GM/dL (11.7-16.9); MCH 33.8 pg (25.7-33.7); MEAN CELL VOLUME 96.7 fl (80-96); MEAN PLT VOLUME 7.4 fl (7.5-11.1); PLATELET COUNT 165 10^3/uL (134-434); RBC 3.52 M/mm3 (4.00-5.60); WHITE BLOOD COUNT 6.9 K/mm3 (4.0-10.0)
[2022-12-18 10:31] LABS: CALCIUM 8.6 mg/dL (8.5-10.1)
[2022-12-18 10:32] LABS: BLOOD UREA NITROGEN 35.1 mg/dL (7-18)
[2022-12-18] MEDS: FLUTICASONE/UMECLIDIN/VILANTER(200-62.5-25 TRELEGY ELLIPTA) INAHLER IH SCH (12:00)
[2022-12-18] MEDS: MONTELUKAST NA 10 MG TABLET PO SCH (22:10)
[2022-12-18] MEDS: LATANOPROST 0.005% OPHTH SOLN 2.5ML BOTTLE OU SCH (22:11)
[2022-12-19] MEDS: DORZOLAMIDE 2% HCL OPHTHALMIC SOLUTION 10 ML BOTTLE OU SCH ×3 (06:20→22:00)
[2022-12-19] MEDS: ALBUTEROL SO4 2.5/IPRATROPIUM 0.5 INH SOL 3 ML VIAL.NEB. NEB SCH ×3 (07:56→20:05)
[2022-12-19] MEDS: ENOXAPARIN NA (PORCINE) 40 MG/0.4 ML DISP.SYRIN SQ SCH (09:23)
[2022-12-19] MEDS: methylPREDNISolone NA SUCC 40 MG/1 ML VIAL IVPUSH SCH ×2 (09:23→22:00)
[2022-12-19] MEDS: MULTIVITAMINS (DAILY MVI) TABLET (FP) PO SCH (09:23)
[2022-12-19] MEDS: PANTOPRAZOLE 40 MG TABLET PO SCH (09:23)
[2022-12-19] MEDS: CEFTRIAXONE 1 GM in DEXTROSE 5%-WATER - 50 ML IVPB SCH (09:24)
[2022-12-19] MEDS: DOXYCYCLINE INJECTION 100 MG in DEXTROSE 5%-WATER 100 ML IVPB SCH ×2 (09:24→22:00)
[2022-12-19] MEDS: FLUTICASONE/UMECLIDIN/VILANTER(200-62.5-25 TRELEGY ELLIPTA) INAHLER IH SCH (09:25)
[2022-12-19] MEDS: BRIMONIDINE TARTRATE 0.1% OPHTHALMIC 5 ML BOTTLE OU SCH ×2 (09:26→22:00)
[2022-12-19] MEDS: MONTELUKAST NA 10 MG TABLET PO SCH (22:00)
[2022-12-19] MEDS: LATANOPROST 0.005% OPHTH SOLN 2.5ML BOTTLE OU SCH (22:01)
[2022-12-20] MEDS: DORZOLAMIDE 2% HCL OPHTHALMIC SOLUTION 10 ML BOTTLE OU SCH ×3 (06:16→21:39)
[2022-12-20] MEDS: ALBUTEROL SO4 2.5/IPRATROPIUM 0.5 INH SOL 3 ML VIAL.NEB. NEB SCH ×3 (07:14→20:05)
[2022-12-20] MEDS: DOXYCYCLINE INJECTION 100 MG in DEXTROSE 5%-WATER 100 ML IVPB SCH ×2 (10:48→21:38)
[2022-12-20] MEDS: CEFTRIAXONE 1 GM in DEXTROSE 5%-WATER - 50 ML IVPB SCH (10:49)
[2022-12-20] MEDS: ENOXAPARIN NA (PORCINE) 40 MG/0.4 ML DISP.SYRIN SQ SCH (10:50)
[2022-12-20] MEDS: PANTOPRAZOLE 40 MG TABLET PO SCH (10:50)
[2022-12-20] MEDS: methylPREDNISolone NA SUCC 40 MG/1 ML VIAL IVPUSH SCH ×2 (10:50→21:38)
[2022-12-20] MEDS: MULTIVITAMINS (DAILY MVI) TABLET (FP) PO SCH (10:51)
[2022-12-20] MEDS: FLUTICASONE/UMECLIDIN/VILANTER(200-62.5-25 TRELEGY ELLIPTA) INAHLER IH SCH (10:51)
[2022-12-20] MEDS: BRIMONIDINE TARTRATE 0.1% OPHTHALMIC 5 ML BOTTLE OU SCH ×2 (10:52→21:39)
[2022-12-20] MEDS: MONTELUKAST NA 10 MG TABLET PO SCH (21:38)
[2022-12-20] MEDS: LATANOPROST 0.005% OPHTH SOLN 2.5ML BOTTLE OU SCH (21:39)
[2022-12-21] MEDS: DORZOLAMIDE 2% HCL OPHTHALMIC SOLUTION 10 ML BOTTLE OU SCH ×2 (06:45→13:39)
[2022-12-21] MEDS: ALBUTEROL SO4 2.5/IPRATROPIUM 0.5 INH SOL 3 ML VIAL.NEB. NEB SCH (07:40)
[2022-12-21 08:46] VITALS: RESP 18
[2022-12-21 08:47] VITALS: BP 111/58; PULSE 75; TEMP 98.2
[2022-12-21] MEDS: DOXYCYCLINE INJECTION 100 MG in DEXTROSE 5%-WATER 100 ML IVPB SCH (09:32)
[2022-12-21] MEDS: PANTOPRAZOLE 40 MG TABLET PO SCH (09:33)
[2022-12-21] MEDS: methylPREDNISolone NA SUCC 40 MG/1 ML VIAL IVPUSH SCH (09:33)
[2022-12-21] MEDS: ENOXAPARIN NA (PORCINE) 40 MG/0.4 ML DISP.SYRIN SQ SCH (09:33)
[2022-12-21] MEDS: MULTIVITAMINS (DAILY MVI) TABLET (FP) PO SCH (09:35)
[2022-12-21] MEDS: FLUTICASONE/UMECLIDIN/VILANTER(200-62.5-25 TRELEGY ELLIPTA) INAHLER IH SCH (09:36)
[2022-12-21] MEDS: BRIMONIDINE TARTRATE 0.1% OPHTHALMIC 5 ML BOTTLE OU SCH (09:36)
[2022-12-21] MEDS: CEFTRIAXONE 1 GM in DEXTROSE 5%-WATER - 50 ML IVPB SCH (10:39)
== END 2022-12-21 14:36 | disposition home or self-care (01) | DRG 202 ==
LOC: JER 12:56 → JERBED 15:22 → J7W 19:03
PROVIDERS: ADMIT Internal Medicine; ATTEND Family Medicine
DX: J45.901 Unspecified asthma with (acute) exacerbation (principal); J18.9 Pneumonia, unspecified organism; J44.1 Chronic obstructive pulmonary disease with (acute) exacerbation; R64 Cachexia; Z68.1 Body mass index [BMI] 19.9 or less, adult; J98.4 Other disorders of lung; K21.9 Gastro-esophageal reflux disease without esophagitis; H40.9 Unspecified glaucoma; Z85.038 Personal history of other malignant neoplasm of large intestine
CPT/HCPCS: 0241U-QW; 36415; 71046-TC-FY; 71250-TC; 80048; 80053; 83735; 84100; 84484; 85025; 85027; 87070; 87205; 93005; 93010; 94640; 94761; 97116-GP; 97161-GP; 99285-25

== ENCOUNTER 2024-06-04 12:00 | Observation (INO) | payer OTHER, MEDICARE ==
[2024-06-04] MEDS ORDERED: ACETAMINOPHEN 500 MG TABLET (FP) PO ONE (15:12)
[2024-06-04] MEDS ORDERED: ACETAMINOPHEN INJECTION 100 ML IVPB ONE (16:59)
[2024-06-04] MEDS ORDERED: FAMOTIDINE 20 MG/50 ML IVPB 20 MG/50 ML MG IVPB ONE (16:59)
[2024-06-04] MEDS: ACETAMINOPHEN 1000 MG/100 ML BAG IVPB ONE (17:11)
[2024-06-04 17:20] LABS: BASO % 0.5 % (0-2.0); EOS % 10.4 % (0-4.5); HEMATOCRIT 28.7 % (35.4-49); LYMPH % 13.9 % (8-40); MCH 33.6 pg (25.7-33.7); MCHC 34.9 g/dl (32.0-35.9); MEAN CELL VOLUME 96.1 fl (80-96); MEAN PLT VOLUME 6.2 fl (7.5-11.1); MONO % 11.6 % (3.8-10.2); NEUT % 63.6 % (42.8-82.8); PLATELET COUNT 164 10^3/uL (134-434); RBC 2.99 M/mm3 (4.00-5.60); RDW 13.9 % (11.9-15.9); WHITE BLOOD COUNT 3.5 K/mm3 (4.0-10.0)
[2024-06-04 17:33] LABS: POTASSIUM 4.5 mmol/L (3.5-5.1)
[2024-06-04 17:37] LABS: ALBUMIN 2.3 g/dl (3.4-5.0); CALCIUM 8.7 mg/dL (8.5-10.1)
[2024-06-04 17:40] LABS: CREATININE 1.6 mg/dL (0.55-1.3)
[2024-06-04 17:42] LABS: BILIRUBIN,TOTAL 0.3 mg/dL (0.2-1); TOT PROT 9.4 g/dl (6.4-8.2)
[2024-06-04] MEDS: FAMOTIDINE 20 MG/50 ML IVPB 20 MG/50 ML MG IVPB ONE (17:58)
[2024-06-04] MEDS ORDERED: ALBUTEROL SO4 2.5/IPRATROPIUM 0.5 INH SOL 3 ML VIAL.NEB. NEB ONE (21:48)
[2024-06-04] MEDS ORDERED: methylPREDNISolone NA SUCC 125 MG/2 ML VIAL ONE (21:48)
[2024-06-04] MEDS ORDERED: AZITHROMYCIN IVPB 500 MG/250 ML BAG IVPB ONE (21:49)
[2024-06-04] MEDS ORDERED: CEFTRIAXONE 1 GM/50 ML BAG ONE (21:49)
[2024-06-04] MEDS: ALBUTEROL SO4 2.5/IPRATROPIUM 0.5 INH SOL 3 ML VIAL.NEB. NEB SCH ×2 (22:19→22:33)
[2024-06-04] MEDS: LACTATED RINGERS SOLUTION 1000 ML INFUS.BAG IV ONE (22:32)
[2024-06-04] MEDS: methylPREDNISolone NA SUCC 125 MG/2 ML VIAL IVPUSH ONE (22:32)
[2024-06-04] MEDS: ALBUTEROL SO4 2.5/IPRATROPIUM 0.5 INH SOL 3 ML VIAL.NEB. NEB ONE (22:33)
[2024-06-04] MEDS: SODIUM CHLORIDE 0.9% 500 ML INFUS.BAG IV ONE (22:36)
[2024-06-04] MEDS: AZITHROMYCIN IVPB 500 MG in DEXTROSE 5%-WATER - 250 ML IVPB ONE (23:36)
[2024-06-05] MEDS: LACTATED RINGERS SOLUTION 1,000 ML/1,000 ML INFUS.BAG IV SCH (01:57)
[2024-06-05] MEDS: BRIMONIDINE TARTRATE 0.1% OPHTHALMIC 5 ML BOTTLE OU SCH (01:59)
[2024-06-05] MEDS: DORZOLAMIDE 2% HCL OPHTHALMIC SOLUTION 10 ML BOTTLE OU SCH (02:01)
[2024-06-05] MEDS: methylPREDNISolone NA SUCC 40 MG/1 ML VIAL IVPUSH ONE (02:07)
[2024-06-05 09:47] LABS: HEMATOCRIT 28.8 % (35.4-49); HEMOGLOBIN 10.1 GM/dL (11.7-16.9); MCH 33.4 pg (25.7-33.7); MCHC 35.1 g/dl (32.0-35.9); MEAN CELL VOLUME 95.1 fl (80-96); MEAN PLT VOLUME 6.7 fl (7.5-11.1); PLATELET COUNT 161 10^3/uL (134-434); RBC 3.03 M/mm3 (4.00-5.60); RDW 13.6 % (11.9-15.9); WHITE BLOOD COUNT 3.5 K/mm3 (4.0-10.0)
[2024-06-05] MEDS: predniSONE 20 MG TABLET (UD) PO SCH (09:57)
[2024-06-05] MEDS: MULTIVITAMINS (DAILY MVI) TABLET (FP) PO SCH (09:57)
[2024-06-05] MEDS: CEFTRIAXONE 1 GM in DEXTROSE 5%-WATER - 50 ML IVPB SCH (09:57)
[2024-06-05 09:58] LABS: POTASSIUM 4.4 mmol/L (3.5-5.1)
[2024-06-05] MEDS: ENOXAPARIN NA (PORCINE) 30 MG/0.3 ML DISP.SYRIN SQ SCH (09:58)
[2024-06-05 10:00] LABS: BLOOD UREA NITROGEN 29.6 mg/dL (7-18); CALCIUM 8.6 mg/dL (8.5-10.1)
[2024-06-05 10:01] LABS: MAGNESIUM 1.8 mg/dL (1.8-2.4)
[2024-06-05 10:04] LABS: CREATININE 1.9 mg/dL (0.55-1.3); PHOSPHOROUS 3.5 mg/dL (2.5-4.9)
[2024-06-05] MEDS: TAMSULOSIN HCL 0.4 MG CAP PO SCH (12:05)
[2024-06-05] MEDS: AZITHROMYCIN 500 MG TABLET PO SCH (12:05)
[2024-06-05 17:02] VITALS: BMI 19.3
[2024-06-05] MEDS: SODIUM CHLORIDE 0.45% 1,000 ML IV SCH (18:04)
[2024-06-05] MEDS ORDERED: NETARSUDIL MESYLATE (RHOPRESSA) (NON-FORMULARY) 0.02% 2.5 ML BOTTLE OU SCH (22:00)
[2024-06-05] MEDS: MONTELUKAST NA 10 MG TABLET PO SCH (22:08)
[2024-06-05] MEDS: LATANOPROST 0.005% OPHTH SOLN 2.5ML BOTTLE OU SCH (22:08)
[2024-06-06 05:41] VITALS: RESP 18
[2024-06-06 09:27] LABS: EOS % 0.1 % (0-4.5); HEMATOCRIT 27.5 % (35.4-49); HEMOGLOBIN 9.7 GM/dL (11.7-16.9); LYMPH % 4.8 % (8-40); MCH 33.6 pg (25.7-33.7); MCHC 35.4 g/dl (32.0-35.9); MEAN CELL VOLUME 94.9 fl (80-96); MEAN PLT VOLUME 6.8 fl (7.5-11.1); MONO % 7.4 % (3.8-10.2); NEUT % 87.7 % (42.8-82.8); PLATELET COUNT 167 10^3/uL (134-434); RBC 2.89 M/mm3 (4.00-5.60); RDW 13.9 % (11.9-15.9); WHITE BLOOD COUNT 8.3 K/mm3 (4.0-10.0)
[2024-06-06 09:35] LABS: POTASSIUM 4.2 mmol/L (3.5-5.1)
[2024-06-06 09:41] VITALS: BP 133/66; PULSE 83; TEMP 97.9
[2024-06-06 09:47] LABS: ALBUMIN 2.5 g/dl (3.4-5.0); CREATININE 1.7 mg/dL (0.55-1.3)
[2024-06-06 09:49] LABS: BILIRUBIN,TOTAL 0.2 mg/dL (0.2-1); TOT PROT 9.2 g/dl (6.4-8.2)
[2024-06-06 09:50] LABS: BLOOD UREA NITROGEN 39.1 mg/dL (7-18); CALCIUM 8.9 mg/dL (8.5-10.1)
== END 2024-06-06 14:58 | disposition home or self-care (01) ==
LOC: JER 12:00 → JERBED 19:45 → J6S 06-05 01:35
PROVIDERS: ADMIT Internal Medicine; ATTEND Family Medicine
PROC: 3E0F7GC Introduction of Other Therapeutic Substance into Respiratory Tract, Via Natural or Artificial Opening (ICD-10-PCS; principal; 2024-06-04)
PROC: 3E03329 Introduction of Other Anti-infective into Peripheral Vein, Percutaneous Approach (ICD-10-PCS; 2024-06-04)
PROC: 3E033NZ Introduction of Analgesics, Hypnotics, Sedatives into Peripheral Vein, Percutaneous Approach (ICD-10-PCS; 2024-06-04)
PROC: 3E033GC Introduction of Other Therapeutic Substance into Peripheral Vein, Percutaneous Approach (ICD-10-PCS; 2024-06-04)
PROC: 3E0337Z Introduction of Electrolytic and Water Balance Substance into Peripheral Vein, Percutaneous Approach (ICD-10-PCS; 2024-06-04)
DX: J44.1 Chronic obstructive pulmonary disease with (acute) exacerbation (principal); J18.9 Pneumonia, unspecified organism; E86.0 Dehydration; K21.9 Gastro-esophageal reflux disease without esophagitis; K82.4 Cholesterolosis of gallbladder; R10.13 Epigastric pain; H40.9 Unspecified glaucoma; Z98.49 Cataract extraction status, unspecified eye; Z85.038 Personal history of other malignant neoplasm of large intestine; Z91.013 Allergy to seafood; Z91.041 Radiographic dye allergy status; Z88.8 Allergy status to other drugs, medicaments and biological substances
CPT/HCPCS: 0241U-QW; 36415; 71046-TC-FY; 71250-TC; 74176-TC; 76705-TC; 76775-TC; 80048; 80053; 82962; 83690; 83735; 84100; 84153; 84443; 84484; 85025; 85027; 86850; 86900; 86901; 93005; 93010; 94640; 96361; 96365; 96367; 96375; 96376; 99285-25; G0378; J0131